=== PATIENT | male | born 1935 | race Caucasian/White ===

== ENCOUNTER 2020-04-08 21:03 | Inpatient (IN) | payer OTHER ==
--- NOTE | 2020-04-08 21:19 | PDOC ---
History of Present Illness - General Chief Complaint: Shortness of Breath Stated Complaint: SOB Time Seen by Provider: 04/08/20 21:12 - History of Present Illness Initial Comments: 04/08/20 21:19 HPI: 84 y/o M with hx of HTN, gout, LE edema presenting with worsening LE edema over the past week and SOB over the past 2 days. He states he saw his PCP Dr Doe 1 week ago and was told his kidney function was high and was told to stop his lasix. Over the past week his legs have become more edmatous and he developed SOB. He was restarted on lasix yesterday. SOB worse on exertion and he also has worsened orthopnea with 4pillows worsening over the past month. He occasionally sleep in the recliner due to SOB. He denies LINK, chest pain, palp, abd pain, n/v, dysuria. PMHx: as noted above ROS: as noted SHx: Denies tobacco use; +occ alcohol use; no rec drugs Allergies: NKDA ROS: GENERAL/CONSTITUTIONAL: No fever or chills. No weakness. HEAD, EYES, EARS, NOSE AND THROAT: No change in vision. No ear pain or discharge. No sore throat. CARDIOVASCULAR: No chest pain; +shortness of breath RESPIRATORY: No cough, wheezing, or hemoptysis. GASTROINTESTINAL: No nausea, vomiting, diarrhea or constipation. GENITOURINARY: No dysuria, frequency, or change in urination. MUSCULOSKELETAL: No joint or muscle swelling or pain. No neck or back pain. SKIN: No rash NEUROLOGIC: No headache, vertigo, loss of consciousness, or change in strength/sensation. ENDOCRINE: No increased thirst. No abnormal weight change HEMATOLOGIC/LYMPHATIC: No anemia, easy bleeding, or history of blood clots. ALLERGIC/IMMUNOLOGIC: No hives or skin allergy. PE: GENERAL: Awake, alert, and fully oriented, no acute distress HEAD: No signs of trauma, normocephalic, atraumatic EYES: EOMI, sclera anicteric, conjunctiva clear ENT: Auricles normal inspection, hearing grossly normal, nares patent, oropharynx clear without exudates. Moist mucosa NECK: Normal ROM, no lymphadenopathy LUNGS: No increased work of breathing, symmetrical chest rise, clear to a uscultation bilaterally, no wheezes, crackles or rhonchi HEART: Regular rate, regular rhythm, normal S1 and S2, no murmur, peripheral pulses 2+ and equal bilaterally. BL LE 2+ pitting edema ABDOMEN: Soft, nondistended, nontender. No guarding, no rebound. No masses. No CVAT MUSCULOSKELETAL: FROM NEUROLOGICAL: Cranial nerves II through XII grossly intact. Normal speech, sta ble gait, no focal sensorimotor deficits SKIN: Warm, Dry, normal turgor, no rashes or lesions noted Past History - Medical History Allergies/Adverse Reactions: Allergies Allergy/AdvReac Type Severity Reaction Status Date / Time No Known Allergies Allergy Verified 07/29/19 11:33 Home Medications: Ambulatory Orders Allopurinol [Zyloprim -] 100 mg PO HS 02/11/19 Alpha Lipoic Acid 1 tab PO DAILY 02/11/19 Amlodipine Besylate/Benazepril [Lotrel 10-20 mg Capsule] 1 tab PO DAILY 02/11/19 Ascorbic Acid [Vitamin C -] 1 tab PO DAILY 02/11/19 Aspirin [ASA -] 81 mg PO DAILY 02/11/19 Carvedilol [Coreg -] 20 mg PO BIDLASIX 02/11/19 Chromium Polynicotinate 200 mg PO HS 02/11/19 Ezetimibe/Simvastatin [Vytorin 10-10 mg Tablet] 1 tab PO DAILY 02/11/19 Furosemide [Lasix -] 40 mg PO DAILY 02/11/19 Gabapentin 300 mg PO TID 02/11/19 L.acidoph,Paracasei, B.lactis [Probiotic] 1 tab PO DAILY 02/11/19 Levothyroxine [Synthroid -] 25 mcg PO DAILY 02/11/19 Magnesium 1 tab PO HS 02/11/19 Meloxicam 15 mg PO DAILY 02/11/19 Multivit-Min/FA/Lycopen/Lutein [Centrum Silver Tablet] 1 tab PO DAILY 02/11/19 [place]-3/Dha/Epa/Fish Oil [[place] 3 500 Softgel] 1 tab PO BID 02/11/19 Ubidecarenone [Coq-10] 1 tab PO HS 02/11/19 Vitamin B Complex/Folic Acid [B-Complex Tablet] 1 tab PO DAILY 02/11/19 Acetaminophen [Tylenol] 2 tab PO Q4H PRN 03/23/20 Cardiac Disorders: Yes (? MS) COPD: Yes HTN: Yes Hypercholesterolemia: Yes - Psycho-Social/Smoking History Smoking History: Former smoker Have you smoked in the past 12 months: Yes If you are a former smoker, when did you quit?: 20 Information on smoking cessation initiated: No - Substance Abuse Hx (Audit-C & DAST Scrn) How often the patient has a drink containing alcohol: Never Score: In Men: 4 or > Positive; In Women: 3 or > Positive: 0 Screen Result (Pos requires Nsg. Audit-10AR): Negative *Physical Exam - Vital Signs Last Vital Signs Temp Pulse Resp BP Pulse Ox 98.3 F 50 L 24 H 146/68 94 L 04/08/20 21:05 04/08/20 21:05 04/08/20 21:05 04/08/20 21:05 04/08/20 21:05 ED Treatment Course - LABORATORY CBC & Chemistry Diagram: 04/08/20 21:48 04/08/20 21:48 Medical Decision Making - Medical Decision Making 04/09/20 00:19 84 y/o M with hx of HTN, gout, LE edema presenting with worsening LE edema over the past week and SOB over the past 2 days after stopping lasix per Dr Doe. Vitals stable. PE with BL LE pitting edema. DDx includes CHF exacerbation, ACS, pna, renal failure -cbc, cmp, coags, card prof, mg, ekg, cxr, bnp -iv lasix 04/09/20 00:21 bnp 1500 cxr with increased vascular markings ekg with sinus rhtytm and luz maria, frequent pvcs, no mikhail/d will admit for chf exacerbation, sob, le edema Discharge - Discharge Information Problems reviewed: Yes Clinical Impression/Diagnosis: CHF exacerbation, SOB (shortness of breath), Bilateral lower extremity edema Condition: Stable - Admission Yes - Follow up/Referral Referrals: Juan Doe MD [Primary Care Provider] - - Patient Discharge Instructions - Post Discharge Activity
[2020-04-08] MEDS ORDERED: FUROSEMIDE 40 MG/4 ML INJECTABLE VIAL IVPUSH ONE (22:04)
--- NOTE | 2020-04-08 22:23 | PDOC ---
Documentation entered by Capri Holt SCRIBE, acting as scribe for Perla Rodriguez DO. Perla Rodriguez DO: This documentation has been prepared by the Jonathon finch Xhesika, SCRIBE, under my direction and personally reviewed by me in its entirety. I confirm that the documentation accurately reflects all work, treatment, procedures, and medical decision making performed by me. Attending Attestation - Resident Resident Name: Randi Shields - ED Attending Attestation I have performed the following: I have examined & evaluated the patient, The case was reviewed & discussed with the resident, I agree w/resident's findings & plan, Exceptions are as noted - HPI HPI: 04/08/20 21:13 The patient is a 84y/o M with a pmh of CHF, HTN, HLD, arthritis, and chronic BLE edema/ulcers who presents to the ED with several days of SOB, worsening today. Pt states his PCP took him off of Lasix due to his kidney function. Pt reports 1 month of orthopnea and sleeps in a chair. The patient denies chest pain, headache and dizziness. Denies fever, chills, cough, nausea, vomiting, diarrhea and constipation. Denies dysuria, frequency, urgency and hematuria. Allergies: NKDA PCP: Dr. Doe - Physicial Exam PE: 04/08/20 22:00 GENERAL: Awake, alert, and fully oriented, in no acute distress HEAD: No signs of trauma EYES: PERRLA, EOMI, sclera anicteric, conjunctiva clear ENT: Auricles normal inspection, hearing grossly normal, nares patent, oropharynx clear without exudates. Moist mucosa NECK: Normal ROM, supple, no lymphadenopathy, JVD, or masses LUNGS: Breath sounds equal + diminished at bases. No wheezes, and no crackles HEART: Regular rate and rhythm, normal S1 and S2, no murmurs, rubs or gallops ABDOMEN: +obese Soft, nontender, normoactive bowel sounds. No guarding, no rebound. No masses EXTREMITIES: +BLE edema to the toes 3+. Normal range of motion. +JVD. No clubbing or cyanosis. No cords, erythema, or tenderness NEUROLOGICAL: Cranial nerves II through XII grossly intact. Normal speech, normal gait SKIN: Warm, dry - Medical Decision Making 04/08/20 22:20 a/p: 84yo male presents for eval of orthopnea, sob, dyspnea, and edema -hx of chf -states his pmd stopped his lasix 2 weeks ago because of increasing renal numbers, but restarted it yesterday with 40mg qd and then 20 BID -pt with jvd, pitting edema on exam -suspect fluid overload -will dose iv lasix 40mg -will obtain ekg, cxr, labs -cards is Dr. hernandes -will monitor and reassess 04/08/20 23:17 trop neg bnp >1500 04/09/20 00:37 resident updated the patient concern for chf exacerabation pt willing to stay for further eval resident discussed the case with [facility] who accepts the patient to service Heart Score/ECG Review - ECG Intrepretation Comment:: 04/08/20 22:22 sinus at 91, pvc, q waves anteriorly which are age indeterminate, low voltage, abnl ekg Discharge - Discharge Information Problems reviewed: Yes Clinical Impression/Diagnosis: CHF exacerbation, SOB (shortness of breath), Bilateral lower extremity edema Condition: Stable - Follow up/Referral Referrals: Juan Doe MD [Primary Care Provider] - - Patient Discharge Instructions - Post Discharge Activity
[2020-04-08 22:24] LABS: BASO % 0.7 % (0-2.0); EOS % 4.7 % (0-4.5); HEMATOCRIT 49.6 % (35.4-49); HEMOGLOBIN 16.9 GM/dL (11.7-16.9); LYMPH % 15.2 % (8-40); MCH 33.8 pg (25.7-33.7); MCHC 33.9 g/dl (32.0-35.9); MEAN CELL VOLUME 99.5 fl (80-96); MEAN PLT VOLUME 8.2 fl (7.5-11.1); MONO % 9.8 % (3.8-10.2); NEUT % 69.6 % (42.8-82.8); PLATELET COUNT 158 K/MM3 (134-434); RBC 4.99 M/mm3 (4.00-5.60); RDW 14.2 % (11.9-15.9); WHITE BLOOD COUNT 5.6 K/mm3 (4.0-10.0)
[2020-04-08 22:30] LABS: INR 0.96 (0.83-1.09); PROTHROMBIN TIME (PATIENT) 11.3 SEC (9.7-13.0)
[2020-04-08] MEDS ORDERED: FUROSEMIDE 40 MG/4 ML INJECTABLE VIAL ONE (22:31)
[2020-04-08 22:33] LABS: ACTIVATED PTT 31.4 SECONDS (25.2-36.5)
[2020-04-08 22:52] LABS: ALBUMIN 4.2 g/dl (3.4-5.0); ALK PHOS 75 U/L (45-117); ANION GAP 9 MMOL/L (8-16); BILIRUBIN,TOTAL 0.7 mg/dL (0.2-1); CHLORIDE 103 mmol/L (98-107); CO2 27 mmol/L (21-32); CREATININE 1.1 mg/dL (0.55-1.3); GLUCOSE,RANDOM 124 mg/dL (74-106); N-TERMINAL BNP 1578.4 pg/ml (5-450); POTASSIUM 4.7 mmol/L (3.5-5.1); SGOT/AST 30 U/L (15-37); SGPT/ALT 37 U/L (13-61); SODIUM 139 mmol/L (136-145); TOT PROT 7.7 g/dl (6.4-8.2)
--- NOTE | 2020-04-09 03:09 | HP ---
CHIEF COMPLAINT: SOB, Lower Extremity Edema PCP: Juan Doe HISTORY OF PRESENT ILLNESS: This is a 84 y/o male with a PMHx of CHF, HTN, HLD, Arthritis, Chronic Bilateral Lower Extremity Edema/Ulcers. Who presents to the ED with his S.O. for several days of SOB, worsening today. Patient states his PMD took him off of Lasix due to his kidney function 5 days ago. Patient reports 1 month of orthopnea and sleeps in a chair. The patient states today he could not take 2 steps without being SOB prompting him to come in for evaluation. The patient denies fever, chills, dizziness, LINK, CP, palpitations, AP, N/V/D, constipation, dysuria. Patient denies sick contacts or recent travel. ER course was notable for: (1) Chest Xray image- pulmonary vascular congestion (2) BNP 1578 (3) Lasix 40mg IVP, pt. voided x2 unmeasured Recent Travel: None PAST MEDICAL HISTORY: See HPI PAST SURGICAL HISTORY: Denies Social History: Smoking: Former, Quit 50 yrs ago Alcohol: Occasional, Red Wine Drugs: Denies Lives with S.O., retired Allergies No Known Allergies Allergy (Verified 07/29/19 11:33) HOME MEDICATIONS: Home Medications Medication Instructions Recorded Allopurinol [Zyloprim -] 100 mg PO HS 02/11/19 Alpha Lipoic Acid 1 tab PO DAILY 02/11/19 Amlodipine Besylate/Benazepril 1 tab PO DAILY 02/11/19 [Lotrel 10-20 mg Capsule] Ascorbic Acid [Vitamin C -] 1 tab PO DAILY 02/11/19 Aspirin [ASA -] 81 mg PO DAILY 02/11/19 Carvedilol [Coreg -] 20 mg PO BIDLASIX 02/11/19 Chromium Polynicotinate 200 mg PO HS 02/11/19 Ezetimibe/Simvastatin [Vytorin 1 tab PO DAILY 02/11/19 10-10 mg Tablet] Furosemide [Lasix -] 40 mg PO DAILY 02/11/19 Gabapentin 300 mg PO TID 02/11/19 L.acidoph,Paracasei, B.lactis 1 tab PO DAILY 02/11/19 [Probiotic] Levothyroxine [Synthroid -] 25 mcg PO DAILY 02/11/19 Magnesium 1 tab PO HS 02/11/19 Meloxicam 15 mg PO DAILY 02/11/19 Multivit-Min/FA/Lycopen/Lutein 1 tab PO DAILY 02/11/19 [Centrum Silver Tablet] [place]-3/Dha/Epa/Fish Oil [[place] 3 1 tab PO BID 02/11/19 500 Softgel] Ubidecarenone [Coq-10] 1 tab PO HS 02/11/19 Vitamin B Complex/Folic Acid 1 tab PO DAILY 02/11/19 [B-Complex Tablet] Acetaminophen [Tylenol] 2 tab PO Q4H PRN 03/23/20 REVIEW OF SYSTEMS CONSTITUTIONAL: Absent: fever, chills, diaphoresis, generalized weakness, malaise, loss of appetite, weight change HEENT: Absent: rhinorrhea, nasal congestion, throat pain, throat swelling, difficulty swallowing, mouth swelling, ear pain, eye pain, visual changes CARDIOVASCULAR: peripheral edema Absent: chest pain, syncope, palpitations, irregular heart rate, lightheadedness RESPIRATORY: cough, shortness of breath, dyspnea with exertion, orthopnea, Absent: wheezing, stridor, hemoptysis GASTROINTESTINAL: Absent: abdominal pain, abdominal distension, nausea, vomiting, diarrhea, constipation, melena, hematochezia GENITOURINARY: Absent: dysuria, frequency, urgency, hesitancy, hematuria, flank pain, genital pain MUSCULOSKELETAL: Absent: myalgia, arthralgia, joint swelling, back pain, neck pain SKIN: Absent: rash, itching, pallor HEMATOLOGIC/IMMUNOLOGIC: Absent: easy bleeding, easy bruising, lymphadenopathy, frequent infections ENDOCRINE: Absent: unexplained weight gain, unexplained weight loss, heat intolerance, cold intolerance NEUROLOGIC: Absent: headache, focal weakness or paresthesias, dizziness, unsteady gait, seizure, mental status changes, bladder or bowel incontinence PSYCHIATRIC: Absent: anxiety, depression, suicidal or homicidal ideation, hallucinations. PHYSICAL EXAMINATION Vital Signs - 24 hr 04/08/20 04/08/20 21:05 23:43 Temperature 98.3 F Pulse Rate 50 L Respiratory 24 H Rate Blood Pressure 146/68 O2 Sat by Pulse 94 L 96 Oximetry (%) GENERAL: Awake, alert, and fully oriented, in no acute distress. HEAD: Normal with no signs of trauma. EYES: Pupils equal, round and reactive to light, extraocular movements intact, sclera anicteric, conjunctiva clear. No lid lag. EARS, NOSE, THROAT: Ears normal, nares patent, oropharynx clear without exudates. Moist mucous membranes. NECK: Normal range of motion, supple without lymphadenopathy, JVD, or masses. LUNGS: Breath sounds diminished bases with scattered rhonchi, wheeze upper lobes . No accessory muscle use. HEART: Regular rate and rhythm, normal S1 and S2 without murmur, rub or gallop. ABDOMEN: Soft, nontender, not distended, normoactive bowel sounds, no guarding, no rebound, no masses. No hepatomegaly or splenomegaly. MUSCULOSKELETAL: Normal range of motion at all joints. No bony deformities or tenderness. No CVA tenderness. UPPER EXTREMITIES: 2+ pulses, warm, well-perfused. No cyanosis. No clubbing. No peripheral edema. LOWER EXTREMITIES: 2+ pulses, warm, well-perfused. No calf tenderness. +3 pittin g b/l peripheral edema. NEUROLOGICAL: Cranial nerves II-XII intact. Normal speech. Gait not observed. PSYCHIATRIC: Cooperative. Good eye contact. Appropriate mood and affect. SKIN: Warm, dry, normal turgor, no rashes or lesions noted, normal capillary refill. Laboratory Results - last 24 hr 04/08/20 04/08/20 04/08/20 21:48 21:48 21:48 WBC 5.6 RBC 4.99 Hgb 16.9 Hct 49.6 H MCV 99.5 H MCH 33.8 H MCHC 33.9 RDW 14.2 Plt Count 158 MPV 8.2 Absolute Neuts (auto) 3.9 Neutrophils % 69.6 Lymphocytes % 15.2 Monocytes % 9.8 Eosinophils % 4.7 H Basophils % 0.7 Nucleated RBC % 0 PT with INR 11.30 INR 0.96 PTT (Actin FS) 31.4 Sodium 139 Potassium 4.7 Chloride 103 Carbon Dioxide 27 Anion Gap 9 BUN 28.0 H Creatinine 1.1 Est GFR (CKD-EPI)AfAm 72.07 Est GFR (CKD-EPI)NonAf 62.19 Random Glucose 124 H Calcium 10.0 Magnesium Total Bilirubin 0.7 AST 30 ALT 37 Alkaline Phosphatase 75 Creatine Kinase 88 Troponin I < 0.02 B-Natriuretic Peptide 1578.4 H Total Protein 7.7 Albumin 4.2 04/08/20 21:48 WBC RBC Hgb Hct MCV MCH MCHC RDW Plt Count MPV Absolute Neuts (auto) Neutrophils % Lymphocytes % Monocytes % Eosinophils % Basophils % Nucleated RBC % PT with INR INR PTT (Actin FS) Sodium Potassium Chloride Carbon Dioxide Anion Gap BUN Creatinine Est GFR (CKD-EPI)AfAm Est GFR (CKD-EPI)NonAf Random Glucose Calcium Magnesium 2.1 Total Bilirubin AST ALT Alkaline Phosphatase Creatine Kinase Troponin I B-Natriuretic Peptide Total Protein Albumin ASSESSMENT/PLAN: This is a 84 y/o male with a PMHx of CHF, HTN HLD, Arthritis, Chronic BLE Edema/Ulcers. Admitted to Telemetry for CHF Exacerbation for further evaluation of their emergent condition. Plan: See Problem List FEN Fluid Restriction 1L Replete lytes prn Low Na Diet DVT ppx OOB TEDs Heparin SQ Dispo: Requires Inpatient Care Family Medical History Family History: As Documented Family Hx Cancer: Grandmother (maternal) (Stomach), Mother (Colon, Uterine), Sister (Breast, Uterine) Family Hx Nuerologic Problems: Father (Aneurysm) Problem List - Problem (1) CHF exacerbation Assessment/Plan: Likely due to missed medications Chest Xray- pulm vasc congestion BNP 1578 Lasix given in ED, will continue Appreciate Cardiology consult Serial Enzymes Strict INOs Daily weight Elevate extremities Monitor CBC, CMP Code(s): I50.9 - HEART FAILURE, UNSPECIFIED (2) Bilateral lower extremity edema Assessment/Plan: see above Code(s): R60.0 - LOCALIZED EDEMA (3) HTN (hypertension) Assessment/Plan: Monitor BP Continue home meds with parameters Monitor renal function Code(s): I10 - ESSENTIAL (PRIMARY) HYPERTENSION (4) HLD (hyperlipidemia) Assessment/Plan: stable Continue Lipitor Monitor LFTs Code(s): E78.5 - HYPERLIPIDEMIA, UNSPECIFIED (5) Arthritis Assessment/Plan: stable Continue Tylenol Code(s): M19.90 - UNSPECIFIED OSTEOARTHRITIS, UNSPECIFIED SITE (6) Encounter for screening laboratory testing for COVID-19 virus Assessment/Plan: Low Risk COVID PCR-pending Isolation Precautions Code(s): Z11.59 - ENCOUNTER FOR SCREENING FOR OTHER VIRAL DISEASES Visit type - Medication Review Med list reviewed for High Risk Meds patients 65 and older: Yes - Emergency Visit Emergency Visit: Yes ED Registration Date: 04/08/20 Care time: The patient presented to the Emergency Department on the above date and was hospitalized for further evaluation of their emergent condition. - New Patient This patient is new to me today: Yes Date on this admission: 04/09/20 - Critical Care Critical Care patient: No
[2020-04-09 06:05] LABS: HEMATOCRIT 46.1 % (35.4-49); HEMOGLOBIN 15.4 GM/dL (11.7-16.9); LYMPH % 20.1 % (8-40); MCH 33.3 pg (25.7-33.7); MCHC 33.3 g/dl (32.0-35.9); MEAN CELL VOLUME 100.2 fl (80-96); MEAN PLT VOLUME 7.8 fl (7.5-11.1); MONO % 12.3 % (3.8-10.2); NEUT % 60.6 % (42.8-82.8); PLATELET COUNT 148 K/MM3 (134-434)
[2020-04-09] MEDS ORDERED: GABAPENTIN 300 MG CAPSULE PO ONE (06:18)
[2020-04-09] MEDS ORDERED: GABAPENTIN 100 MG CAPSULE ONE ×2 (06:26→08:24)
[2020-04-09] MEDS ORDERED: FUROSEMIDE 40 MG/4 ML INJECTABLE VIAL ONE ×2 (06:26→14:58)
[2020-04-09] MEDS: FUROSEMIDE 40 MG/4 ML INJECTABLE VIAL IVPUSH SCH ×2 (06:52→15:10)
[2020-04-09] MEDS ORDERED: LEVOTHYROXINE NA 25 MCG TABLET (FP) ONE (07:25)
[2020-04-09] MEDS: LEVOTHYROXINE NA 25 MCG TABLET (FP) PO SCH (07:38)
[2020-04-09 08:05] LABS: ALBUMIN 3.6 g/dl (3.4-5.0); BILIRUBIN,TOTAL 0.7 mg/dL (0.2-1); BLOOD UREA NITROGEN 26.8 mg/dL (7-18); CALCIUM 9.5 mg/dL (8.5-10.1); CREATININE 1.1 mg/dL (0.55-1.3); MAGNESIUM 2.2 mg/dL (1.8-2.4); POTASSIUM 5.5 mmol/L (3.5-5.1); TOT PROT 7.2 g/dl (6.4-8.2)
[2020-04-09] MEDS ORDERED: HEPARIN NA (PORCINE) 5,000 UNITS/ML 1ML VIAL ONE (08:24)
[2020-04-09] MEDS ORDERED: ASPIRIN 81 MG CHEWABLE TABLETS ONE (08:24)
[2020-04-09] MEDS ORDERED: ASCORBIC ACID 500 MG TABLET (FP) ONE (08:26)
[2020-04-09] MEDS ORDERED: MULTIVITAMINS (DAILY MVI) TABLET (FP) ONE (08:26)
[2020-04-09] MEDS: GABAPENTIN 300 MG CAPSULE PO SCH ×2 (09:05→22:21)
[2020-04-09] MEDS: MULTIVITAMINS (DAILY MVI) TABLET (FP) PO SCH (09:05)
[2020-04-09] MEDS: ASCORBIC ACID 500 MG TABLET (FP) PO SCH (09:05)
[2020-04-09] MEDS: ASPIRIN 81 MG CHEWABLE TABLETS PO SCH (09:05)
[2020-04-09] MEDS: HEPARIN NA (PORCINE) 5,000 UNITS/ML 1ML VIAL SQ SCH ×2 (09:05→22:21)
--- NOTE | 2020-04-09 09:34 | EKG ---
Test Reason : Blood Pressure : / mmHG Vent. Rate : 091 BPM Atrial Rate : 091 BPM P-R Int : 182 ms QRS Dur : 072 ms QT Int : 352 ms P-R-T Axes : 038 -02 043 degrees QTc Int : 432 ms POOR DATA QUALITY, INTERPRETATION MAY BE ADVERSELY AFFECTED SINUS RHYTHM WITH FREQUENT PREMATURE VENTRICULAR COMPLEXES LOW VOLTAGE QRS CANNOT RULE OUT ANTEROSEPTAL INFARCT , AGE UNDETERMINED ABNORMAL ECG NO PREVIOUS ECGS AVAILABLE Confirmed by LAKESHA DUTTA, KENZIE ([id number]) on 04/09/2020 9:34:38 AM Referred By: Confirmed By:KENZIE CROWDER MD
[2020-04-09] MEDS ORDERED: PATIENT'S OWN MEDICATION (NON-FORMULARY) (Multivit-Min/Fa/Lycopen/Lutein [Centrum Silver T PO SCH (10:00)
[2020-04-09] MEDS ORDERED: PATIENT'S OWN MEDICATION (NON-FORMULARY) (Omega-3/Dha/Epa/Fish Oil [Omega 3 500 Softgel] 1 PO SCH (10:00)
[2020-04-09] MEDS ORDERED: ALPHA LIPOIC ACID PO SCH (10:00)
[2020-04-09] MEDS: OMEGA-3 ACID ETHYL ESTERS (FATTY-ACIDS) 1 GM CAPSULE (FP) PO SCH ×2 (10:16→22:21)
[2020-04-09] MEDS: VITAMIN B COMPLEX W/C COMBO TABLET (FP) PO SCH (10:16)
--- NOTE | 2020-04-09 11:29 | HOSP ---
Subjective - Review of Symptoms Subjective: 84 y/o male with a PMHx of CHF, HTN HLD, Arthritis, Chronic BLE Edema/Ulcers. Admitted to Telemetry for CHF Exacerbation Cardiovascular: Yes: Orthopnea, Edema Physical Examination Vital Signs: Vital Signs Temperature 97.2 F L 04/09/20 11:08 Pulse Rate 76 04/09/20 11:08 Respiratory Rate 18 04/09/20 11:08 Blood Pressure 126/61 04/09/20 11:08 O2 Sat by Pulse Oximetry (%) 96 04/09/20 11:08 Constitutional: Yes: Well Nourished, No Distress, Calm Eyes: Yes: WNL, Conjunctiva Clear, EOM Intact HENT: Yes: WNL, Atraumatic, Normocephalic Neck: Yes: WNL, Supple, Trachea Midline Cardiovascular: Yes: WNL, Regular Rate and Rhythm Respiratory: Yes: Regular, Diminished (at bases), On Nasal O2 (4 L), Rhonchi (scattered) Gastrointestinal: Yes: WNL, Normal Bowel Sounds ...Rectal Exam: Yes: Deferred Renal/: Yes: WNL Breast(s): Yes: WNL Musculoskeletal: Yes: WNL Extremities: Yes: WNL Edema: Yes Edema: LLE: 2+, RLE: 2+ Peripheral Pulses WNL: Yes Peripheral Pulses: Left Radial: 2+, Right Radial: 2+, Left Doralis Pedis: 2+, Right Dorsalis Pedis: 2+, Left Femoral: 2+, Right Femoral: 2+ Integumentary: Yes: WNL Neurological: Yes: WNL, Alert, Oriented ...Motor Strength: WNL Psychiatric: Yes: WNL Labs: CBC, BMP 04/09/20 05:44 04/09/20 05:44 Duplex LE: neg for DVT CXR: increased PVC, elevated left hemidaiphrgm Hospitalist Encounter Assessment: Problem List - Problem (1) CHF exacerbation Assessment/Plan: lasix stopped by PCP d/t worsening renal fx Chest Xray- pulm vasc congestion BNP 1578 Lasix given in ED, c/w lasix IV 40mg BID Cardiology following Serial Enzymes Strict I/Os Daily weight Elevate extremities Monitor CBC, CMP Code(s): I50.9 - HEART FAILURE, UNSPECIFIED (2) Bilateral lower extremity edema Assessment/Plan: dopplers neg for DVT Code(s): R60.0 - LOCALIZED EDEMA (3) HTN (hypertension) Assessment/Plan: Monitor BP Continue home meds with parameters Monitor renal function Code(s): I10 - ESSENTIAL (PRIMARY) HYPERTENSION (4) HLD (hyperlipidemia) Assessment/Plan: stable c/w Lipitor Monitor LFTs Code(s): E78.5 - HYPERLIPIDEMIA, UNSPECIFIED (5) Arthritis Assessment/Plan: stable c/w Tylenol Code(s): M19.90 - UNSPECIFIED OSTEOARTHRITIS, UNSPECIFIED SITE (6) Encounter for screening laboratory testing for COVID-19 virus Assessment/Plan: COVID Suspicion low On RA strict airborne/droplet precautions until resulted Code(s): Z11.59 - ENCOUNTER FOR SCREENING FOR OTHER VIRAL DISEASES Admitt to tele. Full code Dispo dc to home when medically stable
--- NOTE | 2020-04-09 12:07 | CON.CARD ---
Cardiology Consult (text) - Consultation Consultation Note: cc: sob hpi: 84 m hx hld, dchf, htn, venous insuff/le edema, here with sob. Recently lasix was held due to elevated cr, then over past week noticed sob, orthopnea, increased le edema. No cp palps dizzy pnd loc. Sees dr hernandes for cardio. pmh: per hpi psh: non contributory social: no tob fam: no premature cad, scd ros: per hpi; all others nl meds: Home Medications Medication Instructions Recorded Allopurinol [Zyloprim -] 100 mg PO HS 02/11/19 Alpha Lipoic Acid 1 tab PO DAILY 02/11/19 Amlodipine Besylate/Benazepril 1 tab PO DAILY 02/11/19 [Lotrel 10-20 mg Capsule] Ascorbic Acid [Vitamin C -] 1 tab PO DAILY 02/11/19 Aspirin [ASA -] 81 mg PO DAILY 02/11/19 Carvedilol [Coreg -] 20 mg PO BIDLASIX 02/11/19 Chromium Polynicotinate 200 mg PO HS 02/11/19 Ezetimibe/Simvastatin [Vytorin 1 tab PO DAILY 02/11/19 10-10 mg Tablet] Furosemide [Lasix -] 40 mg PO DAILY 02/11/19 Gabapentin 300 mg PO TID 02/11/19 L.acidoph,Paracasei, B.lactis 1 tab PO DAILY 02/11/19 [Probiotic] Levothyroxine [Synthroid -] 25 mcg PO DAILY 02/11/19 Magnesium 1 tab PO HS 02/11/19 Meloxicam 15 mg PO DAILY 02/11/19 Multivit-Min/FA/Lycopen/Lutein 1 tab PO DAILY 02/11/19 [Centrum Silver Tablet] [place]-3/Dha/Epa/Fish Oil [[place] 3 1 tab PO BID 02/11/19 500 Softgel] Ubidecarenone [Coq-10] 1 tab PO HS 02/11/19 Vitamin B Complex/Folic Acid 1 tab PO DAILY 02/11/19 [B-Complex Tablet] Acetaminophen [Tylenol] 2 tab PO Q4H PRN 03/23/20 pe: Vital Signs Period Temp Pulse Resp BP Sys/Stiles Pulse Ox Last 24 Hr 97.2 F-98.4 F 50-76 18-24 126-148/61-80 94-96 nad no jvd rrr s1s2 no mrg ctabl nl efff aao3 2+ le edema bl, no c/c abd nt nd pos bs no jaundice diaphoresis pos dp pt no carotid bruits Laboratory Last Values WBC 5.0 K/mm3 (4.0-10.0) 04/09/20 05:44 RBC 4.60 M/mm3 (4.00-5.60) 04/09/20 05:44 Hgb 15.4 GM/dL (11.7-16.9) 04/09/20 05:44 Hct 46.1 % (35.4-49) 04/09/20 05:44 MCV 100.2 fl (80-96) H 04/09/20 05:44 MCH 33.3 pg (25.7-33.7) 04/09/20 05:44 MCHC 33.3 g/dl (32.0-35.9) 04/09/20 05:44 RDW 14.0 % (11.9-15.9) 04/09/20 05:44 Plt Count 148 K/MM3 (134-434) 04/09/20 05:44 MPV 7.8 fl (7.5-11.1) 04/09/20 05:44 Absolute Neuts (auto) 3.0 K/mm3 (1.5-8.0) 04/09/20 05:44 Neutrophils % 60.6 % (42.8-82.8) 04/09/20 05:44 Lymphocytes % 20.1 % (8-40) D 04/09/20 05:44 Monocytes % 12.3 % (3.8-10.2) H 04/09/20 05:44 Eosinophils % 6.0 % (0-4.5) H 04/09/20 05:44 Basophils % 1.0 % (0-2.0) 04/09/20 05:44 Nucleated RBC % 0 % (0-0) 04/09/20 05:44 PT with INR 11.30 SEC (9.7-13.0) 04/08/20 21:48 INR 0.96 (0.83-1.09) 04/08/20 21:48 PTT (Actin FS) 31.4 SECONDS (25.2-36.5) 04/08/20 21:48 Sodium 139 mmol/L (136-145) 04/09/20 05:44 Potassium 5.5 mmol/L (3.5-5.1) H 04/09/20 05:44 Chloride 104 mmol/L (98-107) 04/09/20 05:44 Carbon Dioxide 28 mmol/L (21-32) 04/09/20 05:44 Anion Gap 7 MMOL/L (8-16) L 04/09/20 05:44 BUN 26.8 mg/dL (7-18) H 04/09/20 05:44 Creatinine 1.1 mg/dL (0.55-1.3) 04/09/20 05:44 Est GFR (CKD-EPI)AfAm 72.07 04/09/20 05:44 Est GFR (CKD-EPI)NonAf 62.19 04/09/20 05:44 Random Glucose 119 mg/dL (74-106) H 04/09/20 05:44 Hemoglobin A1c % 5.8 % (4.2-6.3) 04/09/20 05:44 Calcium 9.5 mg/dL (8.5-10.1) 04/09/20 05:44 Magnesium 2.2 mg/dL (1.8-2.4) 04/09/20 05:44 Total Bilirubin 0.7 mg/dL (0.2-1) 04/09/20 05:44 AST 56 U/L (15-37) H 04/09/20 05:44 ALT 35 U/L (13-61) 04/09/20 05:44 Alkaline Phosphatase 63 U/L (45-117) 04/09/20 05:44 Creatine Kinase 88 U/L (26-308) 04/08/20 21:48 Troponin I < 0.02 ng/ml (0.00-0.05) 04/08/20 21:48 B-Natriuretic Peptide 1578.4 pg/ml (5-450) H 04/08/20 21:48 Total Protein 7.2 g/dl (6.4-8.2) 04/09/20 05:44 Albumin 3.6 g/dl (3.4-5.0) 04/09/20 05:44 TSH 3.24 uIU/ml (0.358-3.74) 04/09/20 05:44 ecg: sr, pvcs, no ischemic changes cxr: no sig chf a/p: 84 m hx hld, dchf, htn, venous insuff/le edema, here with sob. acute diastolic chf: -likely due to not taking lasix recently. cont with iv lasix, daily chem7, wts. -no signs acs -check echo hld: -cont statin htn: -stable venous insuff/le edema: -lasix as above
[2020-04-09] MEDS ORDERED: CARVEDILOL 25 MG TABLET (FP) PO SCH (14:00)
--- NOTE | 2020-04-09 16:06 | ECHO ---
Name: JORGE DE LA PAZ Exam:Adult Echocardiogram Study Date: 04/09/2020 02:29 PM Age: 84 yrs Reason For Study: CHF Height: 71 in Weight: 275 lb BSA: 2.4 m2 MMode/2D Measurements & Calculations IVSd: 0.97 cm Ao root diam: 3.6 cm LVIDd: 4.6 cm LA dimension: 3.7 cm LVIDs: 3.2 cm LVPWd: 0.90 cm EDV(Teich): 96.4 ml LVOT diam: 2.0 cm ESV(Teich): 40.9 ml LAV (MOD-bp): 62.2 ml Doppler Measurements & Calculations MV E max ghanshyam: 50.3 cm/sec Ao V2 max: 117.6 cm/sec MV A max ghanshyam: 93.5 cm/sec Ao max P.5 mmHg MV E/A: 0.54 MV dec time: 0.23 sec PEE(V,D): 2.6 cm2 LV V1 max P.9 mmHg PA V2 max: 86.9 cm/sec LV V1 max: 98.5 cm/sec PA max P.0 mmHg Med Peak E' Ghanshyam: 6.3 cm/sec Med E/e': 8.0 Lat Peak E' Ghanshyam: 7.3 cm/sec Lat E/e': 6.9 Procedure A complete two-dimensional transthoracic echocardiogram was performed (2D, M-mode, Doppler and color flow Doppler). The study was technically difficult with many images being suboptimal in quality. Left Ventricle The left ventricular size, thickness and function are normal. The left ventricular ejection fraction is normal. Ejection Fraction = 60-65%. No regional wall motion abnormalities noted. Right Ventricle The right ventricle is normal in size and function. Atria Normal left and right atrial size and function. Mitral Valve There is no mitral regurgitation noted. Tricuspid Valve There is trace tricuspid regurgitation. There was insufficient TR detected to calculate RV systolic p ressure. Aortic Valve No hemodynamically significant valvular aortic stenosis. No aortic regurgitation is present. Pulmonic Valve There is no pulmonic valvular regurgitation. Great Vessels The aortic root is normal size. Pericardium/Pleura There is no pericardial effusion. Interpretation Summary The study was technically difficult with many images being suboptimal in quality. The left ventricular size, thickness and function are normal The right ventricle is normal in size and function. There is trace tricuspid regurgitation. MD Cody Jordan 04/09/2020 04:06 PM
[2020-04-09 19:15] LABS: BLOOD UREA NITROGEN 30.4 mg/dL (7-18); CALCIUM 9.8 mg/dL (8.5-10.1); CREATININE 1.2 mg/dL (0.55-1.3); POTASSIUM 4.6 mmol/L (3.5-5.1)
[2020-04-09] MEDS: ATORVASTATIN CA 10 MG TABLET (FP) PO SCH (22:21)
[2020-04-09] MEDS: ALLOPURINOL 100 MG TABLET (FP) PO SCH (22:21)
[2020-04-09] MEDS: EZETIMIBE 10 MG TABLET (FP) PO SCH (22:21)
[2020-04-10] MEDS ORDERED: CARVEDILOL 25 MG TABLET (FP) PO ONE (00:14)
[2020-04-10] MEDS: MELATONIN 5 MG TABLETS PO SCH ×3 (00:27→22:47)
[2020-04-10] MEDS: ACETAMINOPHEN 325 MG TABLET (FP) PO PRN ×2 (00:28→22:47)
[2020-04-10 02:51] VITALS: BMI 38.4
--- NOTE | 2020-04-10 06:00 | PN ---
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 Former smoker TELE: NSR - Current Medication List Current Medications: Active Medications Acetaminophen (Tylenol -) 650 mg PO Q4H PRN PRN Reason: PAIN 1-3 Last Admin: 04/10/20 00:28 Dose: 650 mg Documented by: Allopurinol (Zyloprim -) 100 mg PO [facility] Last Admin: 04/09/20 22:21 Dose: 100 mg Documented by: Ascorbic Acid (Vitamin C -) 500 mg PO DAILY [facility] Last Admin: 04/09/20 09:05 Dose: 500 mg Documented by: Aspirin (Asa -) 81 mg PO DAILY [facility] Last Admin: 04/09/20 09:05 Dose: 81 mg Documented by: Atorvastatin Calcium (Lipitor -) 10 mg PO [facility] Last Admin: 04/09/20 22:21 Dose: 10 mg Documented by: Ezetimibe (Zetia -) 10 mg PO [facility] Last Admin: 04/09/20 22:21 Dose: 10 mg Documented by: Furosemide (Lasix Injection -) 40 mg IVPUSH BID@0600,1400 [facility] Last Admin: 04/09/20 15:10 Dose: 40 mg Documented by: Gabapentin (Neurontin -) 300 mg PO BID [facility] Last Admin: 04/09/20 22:21 Dose: 300 mg Documented by: Heparin Sodium (Porcine) (Heparin -) 5,000 unit SQ BID [facility] Last Admin: 04/09/20 22:21 Dose: 5,000 unit Documented by: Levothyroxine Sodium (Synthroid -) 25 mcg PO DAILY@0700 [facility] Last Admin: 04/09/20 07:38 Dose: 25 mcg Documented by: Melatonin (Melatonin) 10 mg PO [facility] Last Admin: 04/10/20 00:29 Dose: Not Given Documented by: Multivitamins (Total B With C -) 1 each PO DAILY [facility] Last Admin: 04/09/20 10:16 Dose: 1 each Documented by: Multivitamins/Minerals/Vitamin C (Tab-A-Vit -) 1 tab PO DAILY [facility] Last Admin: 04/09/20 09:05 Dose: 1 tab Documented by: Non-Formulary Medication (Alpha Lipoic Acid [Alpha Lipoic Acid]) 1 tab PO DAILY [facility] [id number] Ethyl Esters (Lovaza -) 1 gm PO BID [facility] Last Admin: 04/09/20 22:21 Dose: 1 gm Documented by: - Objective Vital Signs: Vital Signs Temperature 97.6 F 04/10/20 02:00 Pulse Rate 58 L 04/10/20 02:00 Respiratory Rate 04/10/20 02:00 Blood Pressure 121/67 04/10/20 02:00 O2 Sat by Pulse Oximetry (%) 92 L 04/10/20 02:00 Constitutional: Yes: No Distress, Calm HENT: Yes: Atraumatic, Normocephalic Respiratory: Yes: CTA Bilaterally Gastrointestinal: Yes: Soft Edema: Yes Edema: LLE: 1+, RLE: 1+ Neurological: Yes: Alert, Oriented Labs: CBC, BMP 04/09/20 05:44 04/09/20 17:55 INR, PTT INR 0.96 (0.83-1.09) 04/08/20 21:48 - ....Imaging Chest X-ray: Report Reviewed EKG: Image Reviewed Assessment/Plan cg: sr, pvcs, no ischemic changes cxr: no sig chf a/p: 84 m hx hld, dchf, htn, venous insuff/le edema, here with sob. acute diastolic chf: -likely due to not taking lasix recently. cont with iv lasix today and d/c after AM dose and switch to PO starting 04/11; daily chem7, wts. Plan for tentative discharge in AM 04/11 if remains stable -no signs acs -check echo hld: -cont statin htn: -stable venous insuff/le edema: -lasix as above
[2020-04-10] MEDS: FUROSEMIDE 40 MG/4 ML INJECTABLE VIAL IVPUSH SCH (06:07)
[2020-04-10] MEDS: LEVOTHYROXINE NA 25 MCG TABLET (FP) PO SCH (06:07)
--- NOTE | 2020-04-10 07:46 | PN ---
Progress Note, Physician Chief Complaint: Seen and examined sitting in bed. States his legs feel less edematous. Asking when he can go home History of Present Illness: 84 y/o male with a PMHx of CHF, HTN HLD, Arthritis, Chronic BLE Edema/Ulcers. Admitted to Telemetry for CHF Exacerbation - Current Medication List Current Medications: Active Medications Acetaminophen (Tylenol -) 650 mg PO Q4H PRN PRN Reason: PAIN 1-3 Last Admin: 04/10/20 00:28 Dose: 650 mg Documented by: Allopurinol (Zyloprim -) 100 mg PO [facility] Last Admin: 04/09/20 22:21 Dose: 100 mg Documented by: Ascorbic Acid (Vitamin C -) 500 mg PO DAILY [facility] Last Admin: 04/09/20 09:05 Dose: 500 mg Documented by: Aspirin (Asa -) 81 mg PO DAILY [facility] Last Admin: 04/09/20 09:05 Dose: 81 mg Documented by: Atorvastatin Calcium (Lipitor -) 10 mg PO [facility] Last Admin: 04/09/20 22:21 Dose: 10 mg Documented by: Ezetimibe (Zetia -) 10 mg PO [facility] Last Admin: 04/09/20 22:21 Dose: 10 mg Documented by: Furosemide (Lasix Injection -) 40 mg IVPUSH BID@0600,1400 [facility] Last Admin: 04/10/20 06:07 Dose: 40 mg Documented by: Gabapentin (Neurontin -) 300 mg PO BID [facility] Last Admin: 04/09/20 22:21 Dose: 300 mg Documented by: Heparin Sodium (Porcine) (Heparin -) 5,000 unit SQ BID [facility] Last Admin: 04/09/20 22:21 Dose: 5,000 unit Documented by: Levothyroxine Sodium (Synthroid -) 25 mcg PO DAILY@0700 [facility] Last Admin: 04/10/20 06:07 Dose: 25 mcg Documented by: Melatonin (Melatonin) 10 mg PO [facility] Last Admin: 04/10/20 00:29 Dose: Not Given Documented by: Multivitamins (Total B With C -) 1 each PO DAILY [facility] Last Admin: 04/09/20 10:16 Dose: 1 each Documented by: Multivitamins/Minerals/Vitamin C (Tab-A-Vit -) 1 tab PO DAILY [facility] Last Admin: 04/09/20 09:05 Dose: 1 tab Documented by: Non-Formulary Medication (Alpha Lipoic Acid [Alpha Lipoic Acid]) 1 tab PO DAILY [facility] [id number] Ethyl Esters (Lovaza -) 1 gm PO BID [facility] Last Admin: 04/09/20 22:21 Dose: 1 gm Documented by: - Objective Vital Signs: Vital Signs Temperature 97.6 F 04/10/20 06:00 Pulse Rate 65 04/10/20 06:00 Respiratory Rate 20 04/10/20 06:00 Blood Pressure 114/51 L 04/10/20 06:00 O2 Sat by Pulse Oximetry (%) 92 L 04/10/20 02:00 Additional Findings/Remarks: Constitutional: Yes: Well Nourished, No Distress, Calm Eyes: Yes: WNL, Conjunctiva Clear, EOM Intact HENT: Yes: WNL, Atraumatic, Normocephalic Neck: Yes: WNL, Supple, Trachea Midline Cardiovascular: Yes: WNL, Regular Rate and Rhythm Respiratory: Yes: Regular, Diminished (at bases), On Nasal O2 (4 L), Rhonchi (scattered) Gastrointestinal: Yes: WNL, Normal Bowel Sounds ...Rectal Exam: Yes: Deferred Renal/: Yes: WNL Breast(s): Yes: WNL Musculoskeletal: Yes: WNL Extremities: Yes: WNL Edema: Yes Edema: LLE: 2+, RLE: 2+ Peripheral Pulses WNL: Yes Peripheral Pulses: Left Radial: 2+, Right Radial: 2+, Left Doralis Pedis: 2+, Right Dorsalis Pedis: 2+, Left Femoral: 2+, Right Femoral: 2+ Integumentary: Yes: WNL Neurological: Yes: WNL, Alert, Oriented ...Motor Strength: WNL Psychiatric: Yes: WNL Labs: CBC, BMP 04/09/20 05:44 04/09/20 17:55 INR, PTT INR 0.96 (0.83-1.09) 04/08/20 21:48 Problem List - Problems (1) Diastolic CHF Assessment/Plan: lasix stopped d/t rising Cr legs less edematous today c/w IV lasix today if continues to improve can change to PO tmrw Code(s): I50.30 - UNSPECIFIED DIASTOLIC (CONGESTIVE) HEART FAILURE (2) Prophylactic measure Assessment/Plan: FEN Fluids: adequate PO intake Electrolytes: monitor & replete as needed Nutrition: low sodium DVT moderate risk sq heparin Dispo Maintain as inpatient full code discharge planning to home Code(s): Z29.9 - ENCOUNTER FOR PROPHYLACTIC MEASURES, UNSPECIFIED (3) Arthritis Code(s): M19.90 - UNSPECIFIED OSTEOARTHRITIS, UNSPECIFIED SITE (4) HLD (hyperlipidemia) Assessment/Plan: c/w statin, zetia Code(s): E78.5 - HYPERLIPIDEMIA, UNSPECIFIED (5) HTN (hypertension) Assessment/Plan: nromotensive c/w coreg Code(s): I10 - ESSENTIAL (PRIMARY) HYPERTENSION (6) Hypothyroid Assessment/Plan: c/w synthroid Code(s): E03.9 - HYPOTHYROIDISM, UNSPECIFIED (7) COVID-19 ruled out Assessment/Plan: negative pcr Code(s): Z03.818 - ENCNTR FOR OBS FOR SUSP EXPSR TO OTH BIOLG AGENTS RULED OUT Visit type - Emergency Visit Emergency Visit: Yes ED Registration Date: 04/09/20 Care time: The patient presented to the Emergency Department on the above date and was hospitalized for further evaluation of their emergent condition. - New Patient This patient is new to me today: No - Critical Care Critical Care patient: No - Discharge Referral Referred to [facility] Med P.C.: No - Medication Review Med list reviewed for High Risk Meds patients 65 and older: Yes
[2020-04-10 08:05] LABS: BASO % 0.8 % (0-2.0); EOS % 5.5 % (0-4.5); HEMATOCRIT 45.4 % (35.4-49); LYMPH % 19.7 % (8-40); MCH 32.9 pg (25.7-33.7); MCHC 33.1 g/dl (32.0-35.9); MEAN CELL VOLUME 99.4 fl (80-96); MEAN PLT VOLUME 7.9 fl (7.5-11.1); MONO % 11.9 % (3.8-10.2); NEUT % 62.1 % (42.8-82.8); PLATELET COUNT 147 K/MM3 (134-434); RBC 4.57 M/mm3 (4.00-5.60); RDW 13.9 % (11.9-15.9); WHITE BLOOD COUNT 4.8 K/mm3 (4.0-10.0)
[2020-04-10 08:22] LABS: ALBUMIN 3.5 g/dl (3.4-5.0); BILIRUBIN,TOTAL 0.8 mg/dL (0.2-1); CALCIUM 9.2 mg/dL (8.5-10.1); CREATININE 1.1 mg/dL (0.55-1.3); MAGNESIUM 2.3 mg/dL (1.8-2.4); N-TERMINAL BNP 918.3 pg/ml (5-450); POTASSIUM 4.2 mmol/L (3.5-5.1)
[2020-04-10] MEDS: ASPIRIN 81 MG CHEWABLE TABLETS PO SCH (10:19)
[2020-04-10] MEDS: OMEGA-3 ACID ETHYL ESTERS (FATTY-ACIDS) 1 GM CAPSULE (FP) PO SCH ×2 (10:19→22:46)
[2020-04-10] MEDS: ASCORBIC ACID 500 MG TABLET (FP) PO SCH (10:19)
[2020-04-10] MEDS: GABAPENTIN 300 MG CAPSULE PO SCH ×2 (10:19→22:47)
[2020-04-10] MEDS: VITAMIN B COMPLEX W/C COMBO TABLET (FP) PO SCH (10:19)
[2020-04-10] MEDS: MULTIVITAMINS (DAILY MVI) TABLET (FP) PO SCH (10:19)
[2020-04-10] MEDS: HEPARIN NA (PORCINE) 5,000 UNITS/ML 1ML VIAL SQ SCH ×2 (10:20→22:47)
[2020-04-10] MEDS: ATORVASTATIN CA 10 MG TABLET (FP) PO SCH (22:46)
[2020-04-10] MEDS: EZETIMIBE 10 MG TABLET (FP) PO SCH (22:46)
[2020-04-10] MEDS: ALLOPURINOL 100 MG TABLET (FP) PO SCH (22:46)
--- NOTE | 2020-04-11 06:22 | PN ---
Progress Note, Physician Chief Complaint: Now 24 hours off IV Lasix Weight down 1lb from yest Feels much better: denies SOB/PND/chest pain TELE : NSR one brief self limited episode of ectopic atrial rhythm and occasional VPCs Pt home Coreg was held on admission due to decompensated CHF status History of Present Illness: Mild diastolic chf exacerbation in setting Lasix non compliance - Current Medication List Current Medications: Active Medications Acetaminophen (Tylenol -) 650 mg PO Q4H PRN PRN Reason: PAIN 1-3 Last Admin: 04/10/20 22:47 Dose: 650 mg Documented by: Allopurinol (Zyloprim -) 100 mg PO [facility] Last Admin: 04/10/20 22:46 Dose: 100 mg Documented by: Ascorbic Acid (Vitamin C -) 500 mg PO DAILY [facility] Last Admin: 04/10/20 10:19 Dose: 500 mg Documented by: Aspirin (Asa -) 81 mg PO DAILY [facility] Last Admin: 04/10/20 10:19 Dose: 81 mg Documented by: Atorvastatin Calcium (Lipitor -) 10 mg PO [facility] Last Admin: 04/10/20 22:46 Dose: 10 mg Documented by: Ezetimibe (Zetia -) 10 mg PO [facility] Last Admin: 04/10/20 22:46 Dose: 10 mg Documented by: Furosemide (Lasix -) 40 mg PO DAILY [facility] Gabapentin (Neurontin -) 300 mg PO BID [facility] Last Admin: 04/10/20 22:47 Dose: 300 mg Documented by: Heparin Sodium (Porcine) (Heparin -) 5,000 unit SQ BID [facility] Last Admin: 04/10/20 22:47 Dose: 5,000 unit Documented by: Levothyroxine Sodium (Synthroid -) 25 mcg PO DAILY@0700 [facility] Last Admin: 04/10/20 06:07 Dose: 25 mcg Documented by: Melatonin (Melatonin) 10 mg PO [facility] Last Admin: 04/10/20 22:47 Dose: 10 mg Documented by: Multivitamins (Total B With C -) 1 each PO DAILY [facility] Last Admin: 04/10/20 10:19 Dose: 1 each Documented by: Multivitamins/Minerals/Vitamin C (Tab-A-Vit -) 1 tab PO DAILY [facility] Last Admin: 04/10/20 10:19 Dose: 1 tab Documented by: Non-Formulary Medication (Alpha Lipoic Acid [Alpha Lipoic Acid]) 1 tab PO DAILY [facility] Qdfew-2-Xryw Ethyl Esters (Lovaza -) 1 gm PO BID [facility] Last Admin: 04/10/20 22:46 Dose: 1 gm Documented by: - Objective Vital Signs: Vital Signs Temperature 97.5 F L 04/11/20 02:00 Pulse Rate 87 04/11/20 02:00 Respiratory Rate 04/11/20 02:00 Blood Pressure 128/65 04/11/20 02:00 O2 Sat by Pulse Oximetry (%) 94 L 04/10/20 20:37 Constitutional: Yes: No Distress, Calm Eyes: Yes: Conjunctiva Clear, EOM Intact HENT: Yes: Normocephalic Neck: Yes: Supple, Trachea Midline Cardiovascular: Yes: Regular Rate and Rhythm, Other (NO JVD, COMFORTABLE LAYING FLAT) Respiratory: Yes: CTA Bilaterally (no rales) Gastrointestinal: Yes: Soft Edema: Yes Edema: LLE: Trace, RLE: Trace Neurological: Yes: Alert, Oriented ...Motor Strength: WNL Labs: CBC, BMP 04/10/20 07:32 04/10/20 07:32 INR, PTT INR 0.96 (0.83-1.09) 04/08/20 21:48 Selected Entries 04/11/20 06:00 Weight 269 lb 6.4 oz Laboratory Tests 04/08/20 04/10/20 04/10/20 21:48 07:32 07:32 WBC 4.8 Hgb 15.0 Plt Count 147 Sodium 139 Potassium 4.2 Creatinine 1.1 Magnesium Troponin I < 0.02 B-Natriuretic Peptide 918.3 H 04/11/20 04/11/20 06:13 06:13 WBC 4.9 Hgb 15.6 Plt Count 151 Sodium 139 Potassium 4.1 Creatinine 1.1 Magnesium 2.2 Troponin I B-Natriuretic Peptide - ....Imaging EKG: Image Reviewed Assessment/Plan Assessment/Plan a/p: 84 m hx hld, dchf, htn, venous insuff/le edema, here with sob. acute diastolic chf: -likely due to not taking lasix, now improved after few days IV Lasix. 24 hours off IV this morning. Weight down, clinically improved with less edema and no JVD, NO SOB -Cont PO Lasix, discharge on 40mg daily with outpt f/u Dr. Hull later this week -Resume home Coreg dose which was initially held on admission in setting decomp CHF (applies primarily to systolic CHF) -no signs acs -echo unremarkable hld: -cont statin htn: -stable venous insuff/le edema: -lasix as above
[2020-04-11] MEDS: LEVOTHYROXINE NA 25 MCG TABLET (FP) PO SCH (07:04)
--- NOTE | 2020-04-11 07:14 | DS ---
Physical Exam: SUBJECTIVE: Patient seen and examined OBJECTIVE: Vital Signs Period Temp Pulse Resp BP Sys/Stiles Pulse Ox Last 24 Hr 97.5 F-98.1 F 62-93 18-22 112-149/53-78 94-96 PHYSICAL EXAM GENERAL: The patient is awake, alert, and fully oriented, in no acute distress. HEAD: Normal with no signs of trauma. EYES: PERRL, extraocular movements intact, sclera anicteric, conjunctiva clear. ENT: Ears normal, nares patent, oropharynx clear without exudates, moist mucous membranes. NECK: Trachea midline, full range of motion, supple. LUNGS: Breath sounds equal, clear to auscultation bilaterally, no wheezes, no crackles, no accessory muscle use. HEART: Regular rate and rhythm, S1, S2 without murmur, rub or gallop. ABDOMEN: Soft, nontender, nondistended, normoactive bowel sounds, no guarding, no rebound, no hepatosplenomegaly, no masses. EXTREMITIES: 2+ pulses, warm, well-perfused, no edema. NEUROLOGICAL: Cranial nerves II through XII grossly intact. Normal speech, gait not observed. PSYCH: Normal mood, normal affect. SKIN: Warm, dry, normal turgor, no rashes or lesions noted. LABS Laboratory Results - last 24 hr 04/09/20 04/10/20 04/10/20 04:19 07:32 07:32 WBC 4.8 RBC 4.57 Hgb 15.0 Hct 45.4 MCV 99.4 H MCH 32.9 MCHC 33.1 RDW 13.9 Plt Count 147 MPV 7.9 Absolute Neuts (auto) 3.0 Neutrophils % 62.1 Lymphocytes % 19.7 Monocytes % 11.9 H Eosinophils % 5.5 H Basophils % 0.8 Nucleated RBC % 0 Sodium 139 Potassium 4.2 Chloride 102 Carbon Dioxide 29 Anion Gap 8 BUN 27.0 H Creatinine 1.1 Est GFR (CKD-EPI)AfAm 72.07 Est GFR (CKD-EPI)NonAf 62.19 Random Glucose 182 H Calcium 9.2 Magnesium 2.3 Total Bilirubin 0.8 AST 23 ALT 31 Alkaline Phosphatase 69 B-Natriuretic Peptide 918.3 H Total Protein 7.0 Albumin 3.5 COVID-19 (NATASHA) Not detected HOSPITAL COURSE: Date of Admission:04/09/20 Date of Discharge: 04/11/20 Discharge Summary Problems reviewed: Yes Reason For Visit: EDEMA OF BOTH LOWER EXTREMITIES, ACUTE ON Current Active Problems Arthritis (Acute) Bilateral lower extremity edema (Acute) CHF exacerbation (Acute) COVID-19 ruled out (Acute) Diastolic CHF (Acute) Encounter for screening laboratory testing for COVID-19 virus (Acute) HLD (hyperlipidemia) (Acute) HTN (hypertension) (Acute) Hypothyroid (Acute) Prophylactic measure (Acute) SOB (shortness of breath) (Acute) Suspected COVID-19 virus infection (Acute) Condition: Improved - Instructions Diet, Activity, Other Instructions: DISCHARGE YOUR VISIT You came to the hospital because your legs were swollen. An ultrasound was done and there was no clots in your legs. You were given Lasix in the IV form and the edema decreased. Continue to take lasix 40mg twice a day when you go home. Follow up with Dr Lopez MEDICATIONS Please continue to take your home medications as prescribed. There was no changes DIET Continue your home diet ADDITIONAL CARE Please make an appointment to see your primary care provider, 2 week from today. ADDITIONAL INFORMATION Please call 911 or come directly to the emergency department if you experience unusual headache, vision change, shortness of breath, chest pain, numbness, tingling, loss of alertness/awareness, loss of function, unusual bleeding or any alarming symptoms. Thank you for allowing me to care for you. Scar Hilton, ELISEP, [facility] [phone] Referrals: Juan Doe MD [Primary Care Provider] - Disposition: HOME - Home Medications Comprehensive Discharge Medication List: Ambulatory Orders Allopurinol [Zyloprim -] 100 mg PO HS 02/11/19 Alpha Lipoic Acid 1 tab PO DAILY 02/11/19 Amlodipine Besylate/Benazepril [Lotrel 10-20 mg Capsule] 1 tab PO DAILY 02/11/19 Ascorbic Acid [Vitamin C -] 1 tab PO DAILY 02/11/19 Aspirin [ASA -] 81 mg PO DAILY 02/11/19 Carvedilol [Coreg -] 20 mg PO BIDLASIX 02/11/19 Chromium Polynicotinate 200 mg PO HS 02/11/19 Ezetimibe/Simvastatin [Vytorin 10-10 mg Tablet] 1 tab PO DAILY 02/11/19 Furosemide [Lasix -] 40 mg PO DAILY 02/11/19 Gabapentin 300 mg PO TID 02/11/19 L.acidoph,Paracasei, B.lactis [Probiotic] 1 tab PO DAILY 02/11/19 Levothyroxine [Synthroid -] 25 mcg PO DAILY 02/11/19 Magnesium 1 tab PO HS 02/11/19 Meloxicam 15 mg PO DAILY 02/11/19 Multivit-Min/FA/Lycopen/Lutein [Centrum Silver Tablet] 1 tab PO DAILY 02/11/19 Spring House-3/Dha/Epa/Fish Oil [[place] House 3 500 Softgel] 1 tab PO BID 02/11/19 Ubidecarenone [Coq-10] 1 tab PO HS 02/11/19 Vitamin B Complex/Folic Acid [B-Complex Tablet] 1 tab PO DAILY 02/11/19 Acetaminophen [Tylenol] 2 tab PO Q4H PRN 03/23/20 Atorvastatin Ca [Lipitor] 10 mg PO HS tablet 04/10/20 Ezetimibe [Zetia -] 10 mg PO HS tablet 04/10/20 Melatonin 10 mg PO HS tab 04/10/20 [place]-3 Acid Ethyl Esters [Lovaza -] 1 gm PO BID cap 04/10/20 Vitamin B Comp W-C [Total B with C -] 1 each PO DAILY tablet 04/10/20 Problem List - Problems (1) Diastolic CHF Code(s): I50.30 - UNSPECIFIED DIASTOLIC (CONGESTIVE) HEART FAILURE (2) Prophylactic measure Code(s): Z29.9 - ENCOUNTER FOR PROPHYLACTIC MEASURES, UNSPECIFIED (3) Arthritis Code(s): M19.90 - UNSPECIFIED OSTEOARTHRITIS, UNSPECIFIED SITE (4) HLD (hyperlipidemia) Code(s): E78.5 - HYPERLIPIDEMIA, UNSPECIFIED (5) HTN (hypertension) Code(s): I10 - ESSENTIAL (PRIMARY) HYPERTENSION (6) Hypothyroid Code(s): E03.9 - HYPOTHYROIDISM, UNSPECIFIED (7) COVID-19 ruled out Code(s): Z03.818 - ENCNTR FOR OBS FOR SUSP EXPSR TO OT BIOLG AGENTS RULED OUT - Discharge Referral Referred to [facility] No
[2020-04-11 07:28] LABS: BASO % 0.7 % (0-2.0); EOS % 5.3 % (0-4.5); HEMATOCRIT 46.7 % (35.4-49); HEMOGLOBIN 15.6 GM/dL (11.7-16.9); LYMPH % 22.8 % (8-40); MCH 33.4 pg (25.7-33.7); MCHC 33.4 g/dl (32.0-35.9); MONO % 12.3 % (3.8-10.2); NEUT % 58.9 % (42.8-82.8); PLATELET COUNT 151 K/MM3 (134-434); RBC 4.67 M/mm3 (4.00-5.60); RDW 13.7 % (11.9-15.9); WHITE BLOOD COUNT 4.9 K/mm3 (4.0-10.0)
[2020-04-11 07:48] LABS: BILIRUBIN,TOTAL 0.8 mg/dL (0.2-1); BLOOD UREA NITROGEN 30.2 mg/dL (7-18); CREATININE 1.1 mg/dL (0.55-1.3); MAGNESIUM 2.2 mg/dL (1.8-2.4); POTASSIUM 4.1 mmol/L (3.5-5.1); TOT PROT 7.3 g/dl (6.4-8.2)
[2020-04-11] MEDS: HEPARIN NA (PORCINE) 5,000 UNITS/ML 1ML VIAL SQ SCH ×2 (09:06→21:38)
[2020-04-11] MEDS: GABAPENTIN 300 MG CAPSULE PO SCH ×2 (09:07→21:34)
[2020-04-11] MEDS: VITAMIN B COMPLEX W/C COMBO TABLET (FP) PO SCH (09:07)
[2020-04-11] MEDS: ASCORBIC ACID 500 MG TABLET (FP) PO SCH (09:07)
[2020-04-11] MEDS: MULTIVITAMINS (DAILY MVI) TABLET (FP) PO SCH (09:07)
[2020-04-11] MEDS: ASPIRIN 81 MG CHEWABLE TABLETS PO SCH (09:07)
[2020-04-11] MEDS: OMEGA-3 ACID ETHYL ESTERS (FATTY-ACIDS) 1 GM CAPSULE (FP) PO SCH ×2 (09:07→21:33)
[2020-04-11] MEDS ORDERED: CARVEDILOL 25 MG TABLET (FP) PO ONE (09:43)
[2020-04-11] MEDS ORDERED: CARVEDILOL 25 MG TABLET (FP) PO SCH (10:00)
[2020-04-11] MEDS ORDERED: FUROSEMIDE 40 MG TABLET (FP) PO SCH (10:00)
--- NOTE | 2020-04-11 13:36 | PN ---
Progress Note, Physician Chief Complaint: Seen and examined sitting in bed.Feeling anxious regarding hospitalization. On 3L O2 overnight. SPO2 dropped to 86% on room air. Asking when he can be discharged. History of Present Illness: 84 y/o male with a PMHx of CHF, HTN HLD, Arthritis, Chronic BLE Edema/Ulcers. Admitted to Telemetry for CHF Exacerbation - Current Medication List Current Medications: Active Medications Acetaminophen (Tylenol -) 650 mg PO Q4H PRN PRN Reason: PAIN 1-3 Last Admin: 04/10/20 22:47 Dose: 650 mg Documented by: Allopurinol (Zyloprim -) 100 mg PO [facility] Last Admin: 04/10/20 22:46 Dose: 100 mg Documented by: Alprazolam (Xanax -) 0.5 mg PO Q12H PRN PRN Reason: ANXIETY Ascorbic Acid (Vitamin C -) 500 mg PO DAILY [facility] Last Admin: 04/11/20 09:07 Dose: 500 mg Documented by: Aspirin (Asa -) 81 mg PO DAILY [facility] Last Admin: 04/11/20 09:07 Dose: 81 mg Documented by: Atorvastatin Calcium (Lipitor -) 10 mg PO [facility] Last Admin: 04/10/20 22:46 Dose: 10 mg Documented by: Carvedilol (Coreg -) 25 mg PO DAILY@2200 [facility] Ezetimibe (Zetia -) 10 mg PO [facility] Last Admin: 04/10/20 22:46 Dose: 10 mg Documented by: Furosemide (Lasix Injection -) 40 mg IVPB BID@0600,1400 [facility] Gabapentin (Neurontin -) 300 mg PO BID [facility] Last Admin: 04/11/20 09:07 Dose: 300 mg Documented by: Heparin Sodium (Porcine) (Heparin -) 5,000 unit SQ BID [facility] Last Admin: 04/11/20 09:06 Dose: 5,000 unit Documented by: Levothyroxine Sodium (Synthroid -) 25 mcg PO DAILY@0700 [facility] Last Admin: 04/11/20 07:04 Dose: 25 mcg Documented by: Melatonin (Melatonin) 10 mg PO [facility] Last Admin: 04/10/20 22:47 Dose: 10 mg Documented by: Multivitamins (Total B With C -) 1 each PO DAILY [facility] Last Admin: 04/11/20 09:07 Dose: 1 each Documented by: Multivitamins/Minerals/Vitamin C (Tab-A-Vit -) 1 tab PO DAILY [facility] Last Admin: 04/11/20 09:07 Dose: 1 tab Documented by: [id number] Ethyl Esters (Lovaza -) 1 gm PO BID [facility] Last Admin: 04/11/20 09:07 Dose: 1 gm Documented by: - Objective Vital Signs: Vital Signs Temperature 97.8 F 04/11/20 08:11 Pulse Rate 115 H 04/11/20 12:22 Respiratory Rate 18 04/11/20 08:15 Blood Pressure 135/71 04/11/20 08:11 O2 Sat by Pulse Oximetry (%) 92 L 04/11/20 12:22 Additional Findings/Remarks: Constitutional: Yes: Well Nourished, No Distress, Calm Eyes: Yes: WNL, Conjunctiva Clear, EOM Intact HENT: Yes: WNL, Atraumatic, Normocephalic Neck: Yes: WNL, Supple, Trachea Midline Cardiovascular: Yes: WNL, Regular Rate and Rhythm Respiratory: Yes: Regular, Diminished (at bases), On Nasal O2 (3 L) Gastrointestinal: Yes: WNL, Normal Bowel Sounds ...Rectal Exam: Yes: Deferred Renal/: Yes: WNL Breast(s): Yes: WNL Musculoskeletal: Yes: WNL Extremities: Yes: WNL Edema: Yes Edema: LLE: 2+, RLE: 2+ Peripheral Pulses WNL: Yes Peripheral Pulses: Left Radial: 2+, Right Radial: 2+, Left Doralis Pedis: 2+, Right Dorsalis Pedis: 2+, Left Femoral: 2+, Right Femoral: 2+ Integumentary: Yes: WNL Neurological: Yes: WNL, Alert, Oriented ...Motor Strength: WNL Psychiatric: Yes: WNL Labs: CBC, BMP 04/11/20 06:13 04/11/20 06:13 INR, PTT INR 0.96 (0.83-1.09) 04/08/20 21:48 - ....Imaging Chest X-ray: Image Reviewed Cat Scan: Pending Problem List - Problems (1) Diastolic CHF Assessment/Plan: acute on chronic lasix stopped d/t rising Cr legs less edematous today however remains on O2 c/w IV lasix today and reassess tmrw Code(s): I50.30 - UNSPECIFIED DIASTOLIC (CONGESTIVE) HEART FAILURE (2) Prophylactic measure Assessment/Plan: FEN Fluids: adequate PO intake Electrolytes: monitor & replete as needed Nutrition: low sodium DVT moderate risk sq heparin Dispo Maintain as inpatient full code discharge planning to home-will need home O2 Code(s): Z29.9 - ENCOUNTER FOR PROPHYLACTIC MEASURES, UNSPECIFIED (3) Arthritis Assessment/Plan: tylenol prn Code(s): M19.90 - UNSPECIFIED OSTEOARTHRITIS, UNSPECIFIED SITE (4) HLD (hyperlipidemia) Assessment/Plan: c/w statin, zetia Code(s): E78.5 - HYPERLIPIDEMIA, UNSPECIFIED (5) HTN (hypertension) Assessment/Plan: nromotensive c/w coreg Code(s): I10 - ESSENTIAL (PRIMARY) HYPERTENSION (6) Hypothyroid Assessment/Plan: c/w synthroid Code(s): E03.9 - HYPOTHYROIDISM, UNSPECIFIED (7) COVID-19 ruled out Assessment/Plan: negative pcr Code(s): Z03.818 - ENCNTR FOR OBS FOR SUSP EXPSR TO OTH BIOLG AGENTS RULED OUT (8) On home oxygen therapy Assessment/Plan: Pre/Post SPO2 on NC 98%. Ambulated in room and off O2 for 10 minutes and SPO2 decreased to 86%. Placed back on O2 at 4L and recovered back to 92%. Will need home O2 on discharge Code(s): Z99.81 - DEPENDENCE ON SUPPLEMENTAL OXYGEN (9) CHF exacerbation Assessment/Plan: acute on chronic Code(s): I50.9 - HEART FAILURE, UNSPECIFIED (10) Hypoxia Assessment/Plan: requiring 3L NC c/w lasix ordered oxygen for home use CT pending to r/o underlying disease Code(s): R09.02 - HYPOXEMIA Visit type - Emergency Visit Emergency Visit: Yes ED Registration Date: 04/09/20 Care time: The patient presented to the Emergency Department on the above date and was hospitalized for further evaluation of their emergent condition. - New Patient This patient is new to me today: No - Critical Care Critical Care patient: No - Discharge Referral [facility]erred to [facility] Med P.C.: No - Medication Review Med list reviewed for High Risk Meds patients 65 and older: Yes
[2020-04-11] MEDS: FUROSEMIDE 40 MG/4 ML INJECTABLE VIAL IVPB SCH (13:54)
[2020-04-11] MEDS: ALPRAZolam 0.25 MG TABLET PO PRN ×2 (13:54→21:38)
--- NOTE | 2020-04-11 18:14 | HOSP ---
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 Asymptomatic. BP stable. CMP, CBC, Mg ordered. EKG done and no ischemic changes. Maintain on t jyothi. Critical Care Total Critical Care Time (in minutes): 15
[2020-04-11 21:12] LABS: BASO % 0.9 % (0-2.0); EOS % 4.4 % (0-4.5); HEMATOCRIT 44.9 % (35.4-49); LYMPH % 21.9 % (8-40); MCH 33.1 pg (25.7-33.7); MCHC 33.3 g/dl (32.0-35.9); MEAN CELL VOLUME 99.3 fl (80-96); MONO % 13.2 % (3.8-10.2); NEUT % 59.6 % (42.8-82.8); PLATELET COUNT 142 K/MM3 (134-434); RBC 4.52 M/mm3 (4.00-5.60); RDW 14.2 % (11.9-15.9); WHITE BLOOD COUNT 4.9 K/mm3 (4.0-10.0)
[2020-04-11] MEDS: ALLOPURINOL 100 MG TABLET (FP) PO SCH (21:33)
[2020-04-11] MEDS: CARVEDILOL 25 MG TABLET (FP) PO SCH (21:33)
[2020-04-11] MEDS: ATORVASTATIN CA 10 MG TABLET (FP) PO SCH (21:34)
[2020-04-11] MEDS: EZETIMIBE 10 MG TABLET (FP) PO SCH (21:34)
[2020-04-11 21:40] LABS: ALBUMIN 3.6 g/dl (3.4-5.0); BILIRUBIN,TOTAL 0.6 mg/dL (0.2-1); BLOOD UREA NITROGEN 28.1 mg/dL (7-18); CALCIUM 9.5 mg/dL (8.5-10.1); CREATININE 1.2 mg/dL (0.55-1.3); POTASSIUM 4.1 mmol/L (3.5-5.1); TOT PROT 6.6 g/dl (6.4-8.2)
[2020-04-11] MEDS: MELATONIN 5 MG TABLETS PO SCH (22:01)
[2020-04-12] MEDS: FUROSEMIDE 40 MG/4 ML INJECTABLE VIAL IVPB SCH ×2 (05:39→13:54)
--- NOTE | 2020-04-12 05:49 | PN ---
Progress Note, Physician Chief Complaint: In prep for discharge, trial off O2 showed sats dipped into 80s. Discharge held. Diuresed more aggressively 04/11, non contrast Chest CT obtained as hypoxia seemed out of proportion to degree volume on exam. Showed atelectatic changes. O2 sat slightly improved today, edema improved as well. BNP improved, reflects clinical improvement TELE: NSR episodes of ectopic atrial rhythm which spontaneously resolve. PVCS with comp pauses and rare V couplets. History of Present Illness: acute diastolic CHF VPCs Edema Neuropathy Social: former smoker - Current Medication List Current Medications: Active Medications Acetaminophen (Tylenol -) 650 mg PO Q4H PRN PRN Reason: PAIN 1-3 Last Admin: 04/10/20 22:47 Dose: 650 mg Documented by: Allopurinol (Zyloprim -) 100 mg PO [facility] Last Admin: 04/11/20 21:33 Dose: 100 mg Documented by: Alprazolam (Xanax -) 0.5 mg PO Q12H PRN PRN Reason: ANXIETY Last Admin: 04/11/20 21:38 Dose: 0.5 mg Documented by: Ascorbic Acid (Vitamin C -) 500 mg PO DAILY [facility] Last Admin: 04/11/20 09:07 Dose: 500 mg Documented by: Aspirin (Asa -) 81 mg PO DAILY [facility] Last Admin: 04/11/20 09:07 Dose: 81 mg Documented by: Atorvastatin Calcium (Lipitor -) 10 mg PO [facility] Last Admin: 04/11/20 21:34 Dose: 10 mg Documented by: Carvedilol (Coreg -) 25 mg PO DAILY@2200 [facility] Last Admin: 04/11/20 21:33 Dose: 25 mg Documented by: Ezetimibe (Zetia -) 10 mg PO [facility] Last Admin: 04/11/20 21:34 Dose: 10 mg Documented by: Furosemide (Lasix Injection -) 40 mg IVPB BID@0600,1400 [facility] Last Admin: 04/12/20 05:39 Dose: 40 mg Documented by: Gabapentin (Neurontin -) 300 mg PO BID [facility] Last Admin: 04/11/20 21:34 Dose: 300 mg Documented by: Heparin Sodium (Porcine) (Heparin -) 5,000 unit SQ BID [facility] Last Admin: 04/11/20 21:38 Dose: 5,000 unit Documented by: Levothyroxine Sodium (Synthroid -) 25 mcg PO DAILY@0700 [facility] Last Admin: 04/11/20 07:04 Dose: 25 mcg Documented by: Melatonin (Melatonin) 10 mg PO HS [facility] Last Admin: 04/11/20 22:01 Dose: 10 mg Documented by: Multivitamins (Total B With C -) 1 each PO DAILY [facility] Last Admin: 04/11/20 09:07 Dose: 1 each Documented by: Multivitamins/Minerals/Vitamin C (Tab-A-Vit -) 1 tab PO DAILY [facility] Last Admin: 04/11/20 09:07 Dose: 1 tab Documented by: [id number] Ethyl Esters (Lovaza -) 1 gm PO BID [facility] Last Admin: 04/11/20 21:33 Dose: 1 gm Documented by: - Objective Vital Signs: Vital Signs Temperature 97.6 F 04/12/20 01:07 Pulse Rate 84 04/12/20 01:07 Respiratory Rate 18 04/12/20 01:07 Blood Pressure 117/56 L 04/12/20 01:07 O2 Sat by Pulse Oximetry (%) 91 L 04/11/20 21:00 Constitutional: Yes: No Distress Cardiovascular: Yes: Regular Rate and Rhythm, Other (NO JVD) Respiratory: Yes: CTA Bilaterally (NO RALES) Gastrointestinal: Yes: Soft (nt) Edema: Yes Edema: LLE: 1+, RLE: 1+ Neurological: Yes: Alert, Oriented ...Motor Strength: WNL Labs: CBC, BMP 04/11/20 20:35 04/11/20 20:35 INR, PTT INR 0.96 (0.83-1.09) 04/08/20 21:48 - ....Imaging EKG: Image Reviewed Assessment/Plan Assessment/Plan a/p: 84 m hx hld, dchf, htn, venous insuff/le edema, here with sob and acute on chronic diastolic CHF likely precipitated by noncompliance with Lasix. Improved with IV Lasix but then with desaturation to 80s on 04/11 in preparation for discharge after being off IV Lasix for 24 hours, prompting resumption of IV Lasix for additional optimization of volume status acute diastolic chf: -lmproved/ing. Still with mild edema. -Would diurese with IV Lasix one additional day to assure he is optimized and plan for discharge tomorrow morning on Lasix 40mg PO daily -Needs f/u with Dr. Hull in 1 week -Resumed home Coreg dose which was initially held on admission in setting decomp CHF (applies primarily to systolic CHF) -no signs acs -echo unremarkable hld: -cont statin htn: -stable venous insuff/le edema: -lasix as above
[2020-04-12] MEDS: LEVOTHYROXINE NA 25 MCG TABLET (FP) PO SCH (06:10)
[2020-04-12 08:13] LABS: BASO % 0.9 % (0-2.0); EOS % 4.4 % (0-4.5); HEMATOCRIT 44.3 % (35.4-49); HEMOGLOBIN 14.9 GM/dL (11.7-16.9); LYMPH % 23.9 % (8-40); MCH 33.8 pg (25.7-33.7); MCHC 33.6 g/dl (32.0-35.9); MEAN CELL VOLUME 100.4 fl (80-96); MEAN PLT VOLUME 8.2 fl (7.5-11.1); MONO % 15.9 % (3.8-10.2); NEUT % 54.9 % (42.8-82.8); PLATELET COUNT 132 K/MM3 (134-434); RBC 4.42 M/mm3 (4.00-5.60); RDW 13.8 % (11.9-15.9); WHITE BLOOD COUNT 4.7 K/mm3 (4.0-10.0)
[2020-04-12 08:44] LABS: ALBUMIN 3.5 g/dl (3.4-5.0); BLOOD UREA NITROGEN 29.1 mg/dL (7-18); CALCIUM 8.9 mg/dL (8.5-10.1); CREATININE 1.1 mg/dL (0.55-1.3); N-TERMINAL BNP 570.9 pg/ml (5-450); TOT PROT 6.5 g/dl (6.4-8.2)
[2020-04-12] MEDS: OMEGA-3 ACID ETHYL ESTERS (FATTY-ACIDS) 1 GM CAPSULE (FP) PO SCH ×2 (10:25→21:03)
[2020-04-12] MEDS: ASCORBIC ACID 500 MG TABLET (FP) PO SCH (10:25)
[2020-04-12] MEDS: ASPIRIN 81 MG CHEWABLE TABLETS PO SCH (10:25)
[2020-04-12] MEDS: MULTIVITAMINS (DAILY MVI) TABLET (FP) PO SCH (10:25)
[2020-04-12] MEDS: VITAMIN B COMPLEX W/C COMBO TABLET (FP) PO SCH (10:25)
[2020-04-12] MEDS: GABAPENTIN 300 MG CAPSULE PO SCH ×2 (10:25→21:03)
[2020-04-12] MEDS: HEPARIN NA (PORCINE) 5,000 UNITS/ML 1ML VIAL SQ SCH ×2 (10:25→21:19)
--- NOTE | 2020-04-12 13:19 | PN ---
Physical Exam: SUBJECTIVE: Patient seen and examined BLE edema decreased, denies sob, seen by cardio plan for IV lasix today, switch to PO tomorrow and DC home with O2 O2 delivered at bedside OBJECTIVE: Vital Signs Period Temp Pulse Resp BP Sys/Stiles Pulse Ox Last 24 Hr 97.6 F-98.2 F 66-84 16-19 117-144/56-82 91-97 GENERAL: The patient is awake, alert, and fully oriented, in no acute distress. HEAD: Normal with no signs of trauma. EYES: PERRL, extraocular movements intact, sclera anicteric, conjunctiva clear. No ptosis. ENT: Ears normal, nares patent, oropharynx clear without exudates, moist mucous membranes. NECK: Trachea midline, full range of motion, supple. LUNGS: Breath sounds equal, clear to auscultation bilaterally, no wheezes, no crackles, no accessory muscle use. HEART: Regular rate and rhythm, S1, S2 without murmur, rub or gallop. ABDOMEN: Soft, nontender, nondistended, normoactive bowel sounds, no guarding, no rebound, no hepatosplenomegaly, no masses. EXTREMITIES: 2+ pulses, warm, well-perfused, no edema. NEUROLOGICAL: Cranial nerves II through XII grossly intact. Normal speech, gait not observed. PSYCH: Normal mood, normal affect. SKIN: Warm, dry, normal turgor, no rashes or lesions noted Laboratory Results - last 24 hr 04/11/20 04/11/20 04/11/20 20:35 20:35 20:35 WBC 4.9 RBC 4.52 Hgb 15.0 Hct 44.9 MCV 99.3 H MCH 33.1 MCHC 33.3 RDW 14.2 Plt Count 142 MPV 8.0 Absolute Neuts (auto) 2.9 Neutrophils % 59.6 Lymphocytes % 21.9 Monocytes % 13.2 H Eosinophils % 4.4 Basophils % 0.9 Nucleated RBC % 0 Sodium 140 Potassium 4.1 Chloride 101 Carbon Dioxide 32 Anion Gap 7 L BUN 28.1 H Creatinine 1.2 Est GFR (CKD-EPI)AfAm 64.88 Est GFR (CKD-EPI)NonAf 55.98 Random Glucose 150 H Calcium 9.5 Magnesium 2.0 Total Bilirubin 0.6 AST 23 ALT 33 Alkaline Phosphatase 62 Troponin I < 0.02 B-Natriuretic Peptide Total Protein 6.6 Albumin 3.6 04/12/20 04/12/20 06:17 06:17 WBC 4.7 RBC 4.42 Hgb 14.9 Hct 44.3 MCV 100.4 H MCH 33.8 H MCHC 33.6 RDW 13.8 Plt Count 132 L MPV 8.2 Absolute Neuts (auto) 2.6 Neutrophils % 54.9 Lymphocytes % 23.9 Monocytes % 15.9 H Eosinophils % 4.4 Basophils % 0.9 Nucleated RBC % 0 Sodium 142 Potassium 4.0 Chloride 104 Carbon Dioxide 33 H Anion Gap 5 L BUN 29.1 H Creatinine 1.1 Est GFR (CKD-EPI)AfAm 72.07 Est GFR (CKD-EPI)NonAf 62.19 Random Glucose 118 H Calcium 8.9 Magnesium 2.0 Total Bilirubin 1.0 AST 27 ALT 36 Alkaline Phosphatase 59 Troponin I B-Natriuretic Peptide 570.9 H Total Protein 6.5 Albumin 3.5 Active Medications Generic Name Dose Route Start Last Admin Trade Name Freq PRN Reason Stop Dose Admin Acetaminophen 650 mg 04/09/20 11:38 04/10/20 22:47 Tylenol - PO 650 mg Q4H PRN Administration PAIN 1-3 Allopurinol 100 mg 04/09/20 22:00 04/11/20 21:33 Zyloprim - PO 100 mg HS JULIO C Administration Alprazolam 0.5 mg 04/11/20 13:18 04/11/20 21:38 Xanax - PO 0.5 mg Q12H PRN Administration ANXIETY Ascorbic Acid 500 mg 04/09/20 10:00 04/12/20 10:25 Vitamin C - PO 500 mg DAILY JULIO C Administration Aspirin 81 mg 04/09/20 10:00 04/12/20 10:25 Asa - PO 81 mg DAILY JULIO C Administration Atorvastatin Calcium 10 mg 04/09/20 22:00 04/11/20 21:34 Lipitor - PO 10 mg HS JULIO C Administration Carvedilol 25 mg 04/11/20 22:00 04/11/20 21:33 Coreg - PO 25 mg DAILY@2200 JULIO C Administration Ezetimibe 10 mg 04/09/20 22:00 04/11/20 21:34 Zetia - PO 10 mg HS JULIO C Administration Furosemide 40 mg 04/11/20 14:00 04/12/20 05:39 Lasix Injection - IVPB 40 mg BID@0600,1400 JULIO C Administration Gabapentin 300 mg 04/09/20 10:00 04/12/20 10:25 Neurontin - PO 300 mg BID JUL[facility] C Administration Heparin Sodium (Porcine) 5,000 unit 04/09/20 10:00 04/12/20 10:25 Heparin - SQ 5,000 unit BID JULIO C Administration Levothyroxine Sodium 25 mcg 04/09/20 07:00 04/12/20 06:10 Synthroid - PO 25 mcg DAILY@0700 JUL[facility] C Administration Melatonin 10 mg 04/10/20 00:30 04/11/20 22:01 Melatonin PO 10 mg HS J[facility] C Administration Multivitamins 1 each 04/09/20 10:00 04/12/20 10:25 Total B With C - PO 1 each DAILY [facility] C Administration Multivitamins/Minerals/Vitamin C 1 tab 04/09/20 10:00 04/12/20 10:25 Tab-A-Vit - PO 1 tab DAILY [facility] C Administration Fcyon-2-Bepa Ethyl Esters 1 gm 04/09/20 10:00 04/12/20 10:25 Lovaza - PO 1 gm BID JULIO C Administration ASSESSMENT/PLAN: - Problems (1) Diastolic CHF Assessment/Plan: acute on chronic IV lasix today, switch to PO tomorrow Code(s): I50.30 - UNSPECIFIED DIASTOLIC (CONGESTIVE) HEART FAILURE (2) Prophylactic measure Assessment/Plan: FEN Fluids: adequate PO intake Electrolytes: monitor & replete as needed Nutrition: low sodium DVT moderate risk sq heparin Dispo Maintain as inpatient full code discharge planning to home-will need home O2 Code(s): Z29.9 - ENCOUNTER FOR PROPHYLACTIC MEASURES, UNSPECIFIED (3) Arthritis Assessment/Plan: tylenol prn Code(s): M19.90 - UNSPECIFIED OSTEOARTHRITIS, UNSPECIFIED SITE (4) HLD (hyperlipidemia) Assessment/Plan: c/w statin, zetia Code(s): E78.5 - HYPERLIPIDEMIA, UNSPECIFIED (5) HTN (hypertension) Assessment/Plan: nromotensive c/w coreg Code(s): I10 - ESSENTIAL (PRIMARY) HYPERTENSION (6) Hypothyroid Assessment/Plan: c/w synthroid Code(s): E03.9 - HYPOTHYROIDISM, UNSPECIFIED (7) COVID-19 ruled out Assessment/Plan: negative pcr Code(s): Z03.818 - ENCNTR FOR OBS FOR SUSP EXPSR TO OT BIOLG AGENTS RULED OUT (8) On home oxygen therapy Assessment/Plan: Pre/Post SPO2 on NC 98%. Ambulated in room and off O2 for 10 minutes and SPO2 decreased to 86%. Placed back on O2 at 4L and recovered back to 92%. Will need home O2 on discharge Code(s): Z99.81 - DEPENDENCE ON SUPPLEMENTAL OXYGEN (9) CHF exacerbation Assessment/Plan: acute on chronic Code(s): I50.9 - HEART FAILURE, UNSPECIFIED (10) Hypoxia Assessment/Plan: requiring 3L NC c/w lasix ordered oxygen for home use CT chest reviewed, Code(s): R09.02 - HYPOXEMIA Visit type - Emergency Visit Emergency Visit: Yes ED Registration Date: 04/09/20 Care time: The patient presented to the Emergency Department on the above date and was hospitalized for further evaluation of their emergent condition. - New Patient This patient is new to me today: Yes Date on this admission: 04/12/20 - Critical Care Critical Care patient: No - Medication Review Med list reviewed for High Risk Meds patients 65 and older: No
[2020-04-12] MEDS: CARVEDILOL 25 MG TABLET (FP) PO SCH (21:03)
[2020-04-12] MEDS: EZETIMIBE 10 MG TABLET (FP) PO SCH (21:03)
[2020-04-12] MEDS: ACETAMINOPHEN 325 MG TABLET (FP) PO PRN (21:03)
[2020-04-12] MEDS: ALLOPURINOL 100 MG TABLET (FP) PO SCH (21:03)
[2020-04-12] MEDS: ATORVASTATIN CA 10 MG TABLET (FP) PO SCH (21:03)
[2020-04-12] MEDS: ALPRAZolam 0.25 MG TABLET PO PRN (21:03)
[2020-04-13] MEDS: MELATONIN 5 MG TABLETS PO SCH (01:45)
[2020-04-13] MEDS: FUROSEMIDE 40 MG/4 ML INJECTABLE VIAL IVPB SCH (06:16)
[2020-04-13] MEDS: LEVOTHYROXINE NA 25 MCG TABLET (FP) PO SCH (06:16)
[2020-04-13 07:40] LABS: BASO % 1.6 % (0-2.0); EOS % 4.3 % (0-4.5); HEMATOCRIT 46.6 % (35.4-49); HEMOGLOBIN 15.4 GM/dL (11.7-16.9); LYMPH % 25.9 % (8-40); MCH 32.9 pg (25.7-33.7); MCHC 33.1 g/dl (32.0-35.9); MEAN CELL VOLUME 99.6 fl (80-96); MEAN PLT VOLUME 7.8 fl (7.5-11.1); MONO % 12.4 % (3.8-10.2); NEUT % 55.8 % (42.8-82.8); PLATELET COUNT 136 K/MM3 (134-434); RBC 4.68 M/mm3 (4.00-5.60); RDW 13.8 % (11.9-15.9)
[2020-04-13 08:13] LABS: ALBUMIN 4.1 g/dl (3.4-5.0); BILIRUBIN,TOTAL 1.2 mg/dL (0.2-1); BLOOD UREA NITROGEN 30.1 mg/dL (7-18); CALCIUM 9.5 mg/dL (8.5-10.1); CREATININE 1.2 mg/dL (0.55-1.3); MAGNESIUM 2.2 mg/dL (1.8-2.4); POTASSIUM 4.2 mmol/L (3.5-5.1); TOT PROT 7.1 g/dl (6.4-8.2)
[2020-04-13] MEDS: MULTIVITAMINS (DAILY MVI) TABLET (FP) PO SCH (09:32)
[2020-04-13] MEDS: VITAMIN B COMPLEX W/C COMBO TABLET (FP) PO SCH (09:32)
[2020-04-13] MEDS: HEPARIN NA (PORCINE) 5,000 UNITS/ML 1ML VIAL SQ SCH (09:32)
[2020-04-13] MEDS: OMEGA-3 ACID ETHYL ESTERS (FATTY-ACIDS) 1 GM CAPSULE (FP) PO SCH (09:32)
[2020-04-13] MEDS: ASPIRIN 81 MG CHEWABLE TABLETS PO SCH (09:32)
[2020-04-13] MEDS: GABAPENTIN 300 MG CAPSULE PO SCH (09:32)
[2020-04-13] MEDS: ASCORBIC ACID 500 MG TABLET (FP) PO SCH (09:32)
[2020-04-13 09:44] VITALS: BP 123/60; PULSE 88; TEMP 98
--- NOTE | 2020-04-13 10:11 | DS ---
Physical Exam: SUBJECTIVE: Feels improved. Edema back to baseline. No SOB on 4LNC. 119kg dry weight. OBJECTIVE: Vital Signs Period Temp Pulse Resp BP Sys/Stiles Pulse Ox Last 24 Hr 97.7 F-98.1 F 80-90 18-20 118-138/60-80 91-95 PHYSICAL EXAM GENERAL: NAD, awake, sitting at bedside HEENT: NC/AT, SHANIA, EOMI, MMM NECK: No JVD LUNGS: CTA bilaterally, no wheezes, no crackles, no accessory muscle use. 4LNC HEART: RRR, S1, S2 without murmur ABDOMEN: Soft, NT/ND, normoactive bowel sounds, no guarding, no hepatojugular reflux EXTREMITIES: 2+ DP pulses, warm, well-perfused, trace edema at the ankles. chronic venous stasis changes noted without warmth PSYCH: Normal mood, normal affect. SKIN: Warm, dry, no rashes. See above LABS Laboratory Results - last 24 hr 04/13/20 04/13/20 06:22 06:22 WBC 4.0 RBC 4.68 Hgb 15.4 Hct 46.6 MCV 99.6 H MCH 32.9 MCHC 33.1 RDW 13.8 Plt Count 136 MPV 7.8 Absolute Neuts (auto) 2.2 Neutrophils % 55.8 Lymphocytes % 25.9 Monocytes % 12.4 H Eosinophils % 4.3 Basophils % 1.6 Nucleated RBC % 0 Sodium 141 Potassium 4.2 Chloride 101 Carbon Dioxide 36 H Anion Gap 4 L BUN 30.1 H Creatinine 1.2 Est GFR (CKD-EPI)AfAm 64.88 Est GFR (CKD-EPI)NonAf 55.98 Random Glucose 118 H Calcium 9.5 Magnesium 2.2 Total Bilirubin 1.2 H AST 28 ALT 41 Alkaline Phosphatase 67 Total Protein 7.1 Albumin 4.1 HOSPITAL COURSE: Date of Admission:04/09/20 Date of Discharge: 04/13/20 Pt admitted on 04/09/2020 due to acute CHF exacerbation. Patient was treated with IV Lasix BID 40mg with good diuresis effect. Pt's pulmonary edema and leg edema decreased and he was noted to be back at dry weight of 119kg. Due to acute CHF exacerbation, increased lasix requirements, and prior elevation in Cr, pt had Amlodipine/Benazapril combo pill held during his stay. He remained normotensive throughout. When acute exacerbation resolved pt had home Coreg dose resumed. He is to continue taking Lasix 40mg daily PO as per cardiology instructions. Unfortunately patient had pre-/post- O2 assessment performed which revealed patient was hypoxic (86% during ambulation) which has been improving through his stay. He is being sent home with oxygen until improvement (3L NC). Pt is being discharged in stable form and he is to see Dr. Hull in 1 week. Minutes to complete discharge: 33 Discharge Summary Problems reviewed: Yes Reason For Visit: EDEMA OF BOTH LOWER EXTREMITIES, ACUTE ON Current Active Problems Arthritis (Acute) Bilateral lower extremity edema (Acute) CHF exacerbation (Acute) COVID-19 ruled out (Acute) Diastolic CHF (Acute) Encounter for screening laboratory testing for COVID-19 virus (Acute) HLD (hyperlipidemia) (Acute) HTN (hypertension) (Acute) Hypothyroid (Acute) Hypoxia (Acute) On home oxygen therapy (Acute) Prophylactic measure (Acute) SOB (shortness of breath) (Acute) Suspected COVID-19 virus infection (Acute) Condition: Improved - Instructions Diet, Activity, Other Instructions: DISCHARGE YOUR VISIT You came to the hospital because your legs were swollen. An ultrasound was done and there was no clots in your legs. You were given Lasix in the IV form and the edema decreased. Continue to take lasix 40mg twice a day when you go home. Follow up with Dr Patel MEDICATIONS Please stop your amlodipine/benzapril medication as your blood pressure is controlled and this may lead to some swelling in your legs. Please ask Dr. Hull about restarting this medication as well as continuing your lasix dose at 40mg twice per day DIET Continue your home diet and avoid excess sodium/salt ADDITIONAL CARE Please make an appointment to see your primary care provider, 2 week from today. ADDITIONAL INFORMATION Please call 911 or come directly to the emergency department if you experience unusual headache, vision change, shortness of breath, chest pain, numbness, tingling, loss of alertness/awareness, loss of function, unusual bleeding or any alarming symptoms. Thank you for allowing me to care for you. Scar Hilton, BRAD, [facility] [phone] Referrals: Juan Doe MD [Primary Care Provider] - Disposition: VNS/HOME HEALTH CARE - Home Medications Comprehensive Discharge Medication List: Ambulatory Orders Allopurinol [Zyloprim -] 100 mg PO HS 02/11/19 Alpha Lipoic Acid 1 tab PO DAILY 02/11/19 Amlodipine Besylate/Benazepril [Lotrel 10-20 mg Capsule] 1 tab PO DAILY 02/11/19 Ascorbic Acid [Vitamin C -] 1 tab PO DAILY 02/11/19 Aspirin [ASA -] 81 mg PO DAILY 02/11/19 Carvedilol [Coreg -] 20 mg PO BIDLASIX 02/11/19 Chromium Polynicotinate 200 mg PO HS 02/11/19 Ezetimibe/Simvastatin [Vytorin 10-10 mg Tablet] 1 tab PO DAILY 02/11/19 Furosemide [Lasix -] 40 mg PO DAILY 02/11/19 Gabapentin 300 mg PO TID 02/11/19 L.acidoph,Paracasei, B.lactis [Probiotic] 1 tab PO DAILY 02/11/19 Levothyroxine [Synthroid -] 25 mcg PO DAILY 02/11/19 Magnesium 1 tab PO HS 02/11/19 Meloxicam 15 mg PO DAILY 02/11/19 Multivit-Min/FA/Lycopen/Lutein [Centrum Silver Tablet] 1 tab PO DAILY 02/11/19 [place]-3/Dha/Epa/Fish Oil [[place] 3 500 Softgel] 1 tab PO BID 02/11/19 Ubidecarenone [Coq-10] 1 tab PO HS 02/11/19 Vitamin B Complex/Folic Acid [B-Complex Tablet] 1 tab PO DAILY 02/11/19 Acetaminophen [Tylenol] 2 tab PO Q4H PRN 03/23/20 Atorvastatin Ca [Lipitor] 10 mg PO HS tablet 04/10/20 Ezetimibe [Zetia -] 10 mg PO HS tablet 04/10/20 Melatonin 10 mg PO HS tab 04/10/20 Cub Run-3 Acid Ethyl Esters [Lovaza -] 1 gm PO BID cap 04/10/20 Vitamin B Comp W-C [Total B with C -] 1 each PO DAILY tablet 04/10/20 Carvedilol [Coreg -] 25 mg PO DAILY@2200 tablet 04/13/20 This patient is new to me today: Yes Date on this admission: 04/13/20 Emergency Visit: Yes ED Registration Date: 04/09/20 Care time: The patient presented to the Emergency Department on the above date and was hospitalized for further evaluation of their emergent condition. Critical Care patient: No - Discharge Referral Referred to [facility] Med P.C.: No
--- NOTE | 2020-04-13 11:21 | EKG ---
Test Reason : Blood Pressure : / mmHG Vent. Rate : 095 BPM Atrial Rate : 095 BPM P-R Int : 156 ms QRS Dur : 084 ms QT Int : 356 ms P-R-T Axes : 000 -14 026 degrees QTc Int : 447 ms SINUS RHYTHM WITH FREQUENT PREMATURE VENTRICULAR COMPLEXES LOW VOLTAGE QRS CANNOT RULE OUT ANTERIOR INFARCT (CITED ON OR BEFORE 08-APR-2020) ABNORMAL ECG WHEN COMPARED WITH ECG OF 08-APR-2020 21:38, NO SIGNIFICANT CHANGE WAS FOUND Confirmed by FABIAN CARRANZA MD ([id number]) on 04/13/2020 11:20:41 AM Referred By: Confirmed By:FABIAN CARRANZA MD
--- NOTE | 2020-04-13 11:57 | PN ---
Progress Note (short form) - Note Progress Note: s: no cp sob palps dizzy Ambulatory Orders Allopurinol [Zyloprim -] 100 mg PO HS 02/11/19 Alpha Lipoic Acid 1 tab PO DAILY 02/11/19 Ascorbic Acid [Vitamin C -] 1 tab PO DAILY 02/11/19 Aspirin [ASA -] 81 mg PO DAILY 02/11/19 Carvedilol [Coreg -] 20 mg PO BIDLASIX 02/11/19 Chromium Polynicotinate 200 mg PO HS 02/11/19 Ezetimibe/Simvastatin [Vytorin 10-10 mg Tablet] 1 tab PO DAILY 02/11/19 Furosemide [Lasix -] 40 mg PO DAILY 02/11/19 Gabapentin 300 mg PO TID 02/11/19 L.acidoph,Paracasei, B.lactis [Probiotic] 1 tab PO DAILY 02/11/19 Levothyroxine [Synthroid -] 25 mcg PO DAILY 02/11/19 Magnesium 1 tab PO HS 02/11/19 Meloxicam 15 mg PO DAILY 02/11/19 Multivit-Min/FA/Lycopen/Lutein [Centrum Silver Tablet] 1 tab PO DAILY 02/11/19 [place]-3/Dha/Epa/Fish Oil [[place] 3 500 Softgel] 1 tab PO BID 02/11/19 Ubidecarenone [Coq-10] 1 tab PO HS 02/11/19 Vitamin B Complex/Folic Acid [B-Complex Tablet] 1 tab PO DAILY 02/11/19 Acetaminophen [Tylenol] 2 tab PO Q4H PRN 03/23/20 Atorvastatin Ca [Lipitor] 10 mg PO HS tablet 04/10/20 Ezetimibe [Zetia -] 10 mg PO HS tablet 04/10/20 Melatonin 10 mg PO HS tab 04/10/20 [place]-3 Acid Ethyl Esters [Lovaza -] 1 gm PO BID cap 04/10/20 Vitamin B Comp W-C [Total B with C -] 1 each PO DAILY tablet 04/10/20 Carvedilol [Coreg -] 25 mg PO DAILY@2200 tablet 04/13/20 Vital Signs Period Temp Pulse Resp BP Sys/Stiles Pulse Ox Last 24 Hr 97.7 F-98.1 F 80-90 18-20 118-138/60-80 91-95 Constitutional: Yes: No Distress Cardiovascular: Yes: Regular Rate and Rhythm, Other (NO JVD) Respiratory: Yes: CTA Bilaterally (NO RALES) nl eff Gastrointestinal: Yes: Soft (nt) Edema:no Neurological: Yes: Alert, Oriented ...Motor Strength: WNL no jaundice diaphoresis Labs: CBC, BMP 04/13/20 06:22 04/13/20 06:22 - ....Imaging EKG: Image Reviewed tele: sr Assessment/Plan a/p: 84 m hx hld, dchf, htn, venous insuff/le edema, here with sob and acute on chronic diastolic CHF likely precipitated by noncompliance with Lasix. Improved with IV Lasix but then with desaturation to 80s on 04/11 in preparation for discharge after being off IV Lasix for 24 hours, prompting resumption of IV Lasix for additional optimization of volume status acute diastolic chf: -lmproved, now on po lasix. -Needs f/u with Dr. Hull in 1 week -Resumed home Coreg -no signs acs -echo unremarkable hld: -cont statin htn: -stable venous insuff/le edema: -lasix as above
[2020-04-14] MEDS ORDERED: FUROSEMIDE 40 MG TABLET (FP) PO SCH (10:00)
== END 2020-04-13 11:51 | disposition home health service (06) | DRG 292 ==
LOC: JER 21:03 → JERBED 04-09 00:23 → J4W 04-09 20:25
PROVIDERS: ADMIT Internal Medicine; ATTEND Internal Medicine
DX: I11.0 Hypertensive heart disease with heart failure (principal); J98.11 Atelectasis; I50.33 Acute on chronic diastolic (congestive) heart failure; M10.9 Gout, unspecified; I87.2 Venous insufficiency (chronic) (peripheral); G62.9 Polyneuropathy, unspecified; Z87.891 Personal history of nicotine dependence; Z99.81 Dependence on supplemental oxygen; I49.3 Ventricular premature depolarization
CPT/HCPCS: 36415; 71045-TC-FY; 71250-TC; 80048; 80053; 82550; 83036; 83735; 83880; 84443; 84484; 85025; 85610; 85730; 93005; 93010; 93306-TC; 93970-TC; 94761; 99285-25; J1644; U0003